=== PATIENT | female | born 1950 | race Caucasian/White ===

== ENCOUNTER 2022-12-28 12:03 | Emergency (ER) | payer MEDICARE, SELFPAY ==
[2022-12-28] VITALS (7 sets, daily range): BP systolic 165–179; BP diastolic 71–105; PULSE 68–89; RESP 14–20; TEMP 35.9; O2SAT 92–100; BMI 38.2
--- NOTE | 2022-12-28 12:39 | ED.VIS.LOWEX ---
HPI History of Present Illness Chief Complaint: Lower Extremity Injury Narrative Narrative: 81-year-old female past medical history of hypertension presents with injury to her left ankle that she sustained within the last hour. She presents via EMS after she fell down a hill. She states that she was in her backyard putting up a [place] tree in the gaz[place]o, when she stepped down and twisted her left ankle. She felt a pop. She denies hitting her head or loss of consciousness. No other injury but she was unable to get up secondary to the pain in her left ankle. She presents with positive deformity of her left lower extremity. PFSH PFSH Home Medications losartan 100 mg tablet 100 mg PO DAILY 12/28/22 [History Last Taken Unknown] oxycodone 5 mg tablet 5 mg PO Q6H PRN pain 3 days #12 tabs 12/28/22 [Rx Last Taken Unknown] Allergy/AdvReac Type Severity Reaction Status Date / Time No Known Allergies Allergy Verified 12/28/22 12:04 Social History Smoking Status: Never smoker ROS ROS ED ROS Narrative Constitutional: No fever, no chills. HEENT: No sore throat. No neck pain. No loss of vision. No rhinorrhea. Cardiovascular: No chest pain. No palpitations. No pedal edema. Respiratory: No cough, no shortness of breath. Abdominal: No abdominal pain. No nausea. No vomiting. Genitourinary: No dysuria. No hematuria. Musculoskeletal: No myalgias. Left ankle pain and deformity. Neurologic: No headaches. No dizziness. No lightheadedness. Skin: No rash. No change in color. Psychiatric: No depression. No anxiety. EXAM Physical Exam Narrative Exam Narrative: Afebrile. Vital signs noted. HEENT: Normocephalic. Atraumatic. PERRL, EOMI. Neck soft and supple. No point tenderness or step off. Cardiovascular: Regular rate and rhythm. No murmurs, rubs, or gallops appreciated. Respiratory: No tachypnea. Lungs clear to auscultation bilaterally. Gastrointestinal: Abdomen soft, nontender, with normoactive bowel sounds. No rebound or guarding. Neurological: Awake. Alert. Nonfocal, nonlateralizing. Skin: No rash. Normal color. No pallor. Musculoskeletal: No pedal edema. Deformity of left ankle with tibial shortening deformity noted with mild tenting of the skin, palpable dorsalis pedis pulse. Good color.. Const Vital Signs: 12/28/22 12:04 12/28/22 12:51 12/28/22 13:56 Temperature 96.7 F L 96.7 F L Temperature Source Temporal Pulse Rate 76 71 Pulse Rate [1 (Initial Baseline)] 89 Pulse Rate [4] 69 Pulse Rate [6] 69 Pulse Rate [7] 71 Respiratory Rate 14 14 Respiratory Rate [1 (Initial Baseline)] 16 Respiratory Rate [4] 16 Respiratory Rate [6] 16 Respiratory Rate [7] 20 H Blood Pressure 176/94 H 177/80 H Blood Pressure [1 (Initial Baseline)] 173/105 H Blood Pressure [4] 165/71 H Blood Pressure [6] 170/77 H Blood Pressure [7] 174/85 H Blood Pressure Mean 121 Pulse Ox 99 99 Oxygen Delivery Method Room Air Room Air Oxygen Delivery Method [1 (Initial Baseline)] Nasal Cannula Oxygen Delivery Method [4] Nasal Cannula Oxygen Delivery Method [6] Nasal Cannula Oxygen Delivery Method [7] Nasal Cannula Oxygen Flow Rate (L/min) [1 (Initial Baseline)] 4 Oxygen Flow Rate (L/min) [4] 4 Oxygen Flow Rate (L/min) [6] 4 Oxygen Flow Rate (L/min) [7] 4 12/28/22 13:55 12/28/22 14:00 12/28/22 14:05 Temperature Temperature Source Pulse Rate Pulse Rate [1 (Initial Baseline)] Pulse Rate [4] Pulse Rate [6] Pulse Rate [7] Respiratory Rate Respiratory Rate [1 (Initial Baseline)] Respiratory Rate [4] Respiratory Rate [6] Respiratory Rate [7] Blood Pressure Blood Pressure [1 (Initial Baseline)] Blood Pressure [4] Blood Pressure [6] Blood Pressure [7] Blood Pressure Mean Pulse Ox Oxygen Delivery Method Room Air Room Air Room Air Oxygen Delivery Method [1 (Initial Baseline)] Oxygen Delivery Method [4] Oxygen Delivery Method [6] Oxygen Delivery Method [7] Oxygen Flow Rate (L/min) [1 (Initial Baseline)] Oxygen Flow Rate (L/min) [4] Oxygen Flow Rate (L/min) [6] Oxygen Flow Rate (L/min) [7] MDM MDM MDM Narrative Medical decision making narrative: Concern is for fracture dislocation of left ankle. Given the obvious deformity, she was administered Dilaudid 1 mg intravenously and consented for procedural sedation for closed reduction. X-rays were obtained of the left ankle in 3 views which shows a posterior fracture dislocation of the left ankle. There is an oblique fracture of the distal fibula and medial malleolus fracture as well. This is on my independent interpretation of her initial x-rays. I reviewed the radiology report which confirms my independent rotation. Patient was administered an additional 50 mcg of fentanyl for analgesia prior to propofol sedation and closed reduction. A total of 100 mg of propofol was used for adequate sedation. Earle Lee splint was applied. Patient tolerated procedure well. She prefers to follow-up with the [facility]. They were contacted and made an appointment for her to follow-up tomorrow. She was given a walker and told to be nonweightbearing on her left ankle. Postreduction films obtained of the left ankle in 3 views and interpreted by myself independently which show adequate reduction of the fracture dislocation. She was given a prescription for 3 days worth of oxycodone. I reviewed the radiology report which confirms my postreduction interpretation. At this point in time, I feel she can be discharged to follow-up with orthopedics tomorrow. Return instructions to the emergency department were reviewed. Disposition is discharged home in stable condition. Radiography Diagnostic Testing: Clinical Impression(s) from Imaging Studies Ankle X-Ray 12/28/22 13:15 IMPRESSION: Posterior dislocation of the ankle joint with a displaced oblique fracture of the distal fibula and medial malleolar fracture of the distal tibia. Electronically Signed: Washington Leal MD at 13:39 EST , Ankle X-Ray 12/28/22 14:00 IMPRESSION: Satisfactory reduction. Persistent asymmetry of the ankle mortise. Electronically Signed: Washington Leal MD at 15:00 EST , Procedures Lower Extremity Splints Lower Extremity Splint: Orthoglass and Earle Lee Splint Fabrication: Fabricated Location: Left Discharge Plan Triage Chief Complaint: Lower Extremity Injury ED Provider: Brian Galeas Dx/Rx/DC Orders Clinical Impression: Closed fracture dislocation of left ankle, Fall Instructions: ED Ankle Fracture, ED Mechanical Fall Prescriptions: New oxycodone 5 mg tablet 5 mg PO Q6H PRN (Reason: pain) 3 Days Qty: 12 0RF No Action losartan 100 mg tablet 100 mg PO DAILY Patient Comments: take 1 tablet by mouth once daily Primary Care Provider: GOLD FU Referrals: GOLD FU CRNP [Primary Care Provider] - Activity Restrictions/Additional Instructions: Follow-up with the orthopedic surgeon tomorrow as scheduled at the [facility], Dr. Salas. Continue ice and elevation of your left ankle. You are not to bear weight on her your left ankle at all. Use your walker. Disposition Disposition: Home, Self Care
[2022-12-28] MEDS: HYDROmorphone 1 MG/ML Syringe IV (12:49)
--- NOTE | 2022-12-28 13:15 | RAD_ITS ---
STUDY: X-RAY - LEFT ANKLE REASON FOR EXAM: Female, 72 years old. Trauma TECHNIQUE: 2 view(s) of the ankle. COMPARISON: None. FINDINGS: Posterior dislocation of the tibial talar joint with the oblique displaced fracture of the distal fibula. There is also evidence of a fracture through the medial malleolus. Normal visualized talus and calcaneus. The visualized subtalar, talonavicular, calcaneocuboid and tarsal articulations are normal. Soft tissue swelling. RAD/Ankle 2 Views IMPRESSION: Posterior dislocation of the ankle joint with a displaced oblique fracture of the distal fibula and medial malleolar fracture of the distal tibia. Electronically Signed: Washington Leal MD at 13:39 EST ,
[2022-12-28] MEDS: fentaNYL 100 MCG/2 ML Ampul 50 MCG IV (13:35)
[2022-12-28] MEDS: Propofol 200 MG/20 ML Vial 20 MG IV BOLUS (13:38)
--- NOTE | 2022-12-28 14:00 | RAD_ITS ---
STUDY: X-RAY - LEFT ANKLE REASON FOR EXAM: Female, 72 years old. Post reduction -- portable TECHNIQUE: 3 view(s) of the ankle. COMPARISON: Comparison is made with prior study done earlier today. FINDINGS: Satisfactory reduction. Persistent asymmetry of the ankle mortise. RAD/Ankle min 3 Views IMPRESSION: Satisfactory reduction. Persistent asymmetry of the ankle mortise. Electronically Signed: Washington Leal MD at 15:00 EST ,
== END 2022-12-28 15:49 | disposition home or self-care (01) ==
PROVIDERS: Emergency Provider Emergency Medicine; PCP Nurse Practitioner Adult Health; Visit Provider Emergency Medicine
DX: S93.05XA Dislocation of left ankle joint, initial encounter (principal); I10 Essential (primary) hypertension; Z79.899 Other long term (current) drug therapy; S82.432A Displaced oblique fracture of shaft of left fibula, initial encounter for closed fracture; S82.52XA Displaced fracture of medial malleolus of left tibia, initial encounter for closed fracture
CPT/HCPCS: 27840; 29515; 73600; 73610; 96374; 96375; 99152; 99284; J7030; A4216

== ENCOUNTER → 2023-03-13 | Outpatient (CLI) | payer MEDICARE, SELFPAY ==
[2023-03-13 13:17] LABS: Absolute Lymphocyte Count 1.34 X10^3/uL (0.83-4.51); Basophil# 0.07 X10^3/uL; Basophil% 0.8 % (0-1); Eosinophil# 0.06 X10^3/uL; Eosinophils% 0.7 % (0-5); Hemoglobin 10.2 g/dL (12.0-15.0); Lymphocyte # 1.34 X10^3/ul (0.83-4.51); Lymphocyte % 14.9 % (19-41); Mean Corp Hgb Conc 30.9 g/dL (32-36); Mean Corpuscular Hgb 28.3 pg (27.0-32.0); Mean Corpuscular Volume 91.7 fL (81-99); Mean Platelet Vol. 10.1 fl (6.2-12.0); Monocyte# 0.46 X10^3/uL; Monocyte% 5.1 % (0-10); NRBC Flagged by Analyzer 0 % (0-5); Neutrophil # 7.01 X10^3/uL (2.7-7.7); Neutrophil % 78.2 % (47-70); Platelet Count 352 K/mm3 (150-450); RBC Distribution Width CV 13.3 % (11.6-14.6); RBC Distribution Width SD 45.3 fl (35.1-43.9)
[2023-03-13 13:35] LABS: Alanine Aminotransfer ALT/SGPT 17 U/L (13-56); EST Glomerular Filtration Rate 66 mL/min (>60); Est Glom Filt Rate - Afr Amer 80 mL/min (>60)
--- OUTSIDE RECORDS SUMMARY | 2023-03-13 13:47 | XMS RPT_ITS | CCD ---
Author Name Unknown Address [address] [place] [address] Organization [facility] Care Team Providers Care Planning Lead Name Role Phone PHYSICIAN, NONE Primary Care Physician Unavailab le MAST SENIOR IT ASSISTANT-ESOL TEACHER, GOLD Primary Care Physician ([phone]) MAST SENIOR IT ASSISTANT-ESOL TEACHER, GOLD Attending Unavailabl e MAST SENIOR IT ASSISTANT-ESOL TEACHER, GOLD Primary Care Unavailabl e MAST SENIOR IT ASSISTANT-ESOL TEACHER, GOLD Attending Unavailabl e PHYSICIAN, NONE Primary Care Unavailable ANNEMARIE THORPE MD Attending Unavailable PHYSICIAN, NONE Primary Care Unavailable MAST SENIOR IT ASSISTANT-ESOL TEACHER, GOLD Attending Unavailabl e PHYSICIAN, NONE Primary Care Unavailable GAGE OCAMPO, DR WETZEL Attending Unavailabl e MAST SENIOR IT ASSISTANT-ESOL TEACHER, GOLD Primary Care Unavailabl e Medications Current Medications Medication Drug Class(es) Dates Sig (Normalized) Sig (Original) dexamethasone 0.001 mg/mg / neomycin 0.0035 mg/mg / polymyxin b 10 unt/mg ophthalmic ointment (1 source) Aminoglycoside Antibacterial, Polymyxin-class Antibacterial, Corticosteroid Start: 09-06-2022 apply 1 dose into the eye(s) three times daily dexamethasone/justus mycin/polymyxin B 1 mg-3.5 mg-10,000 units/g ophthalmic ointment Dose = 1 ventura, Ophthalmic, TID, 0 Refill(s) Start Date: 09/06/22 Status: Ordered docusate sodium 100 mg oral capsule (4 sources) Start: 03-15-2022 End: 10-17-2022 Colace 100 mg oral capsule Dose : 100 mg = 1 cap(s), Oral, BID, PRN for constipation, # 60 cap(s), 6 Refill(s), Pharmacy: [facility] #[id number], Hypokalemia Constipation, 168, cm, 03/21/22 8:56:00 EST, Height, kg, 03/21/22 8:56:00 EST, Dosing Weight Start Date: 03/21/22 Stop Date: 10/17/22 Status: Ordered gabapentin 300 mg oral capsule (3 sources) Anti-epileptic Agent Start: 05-25-2022 End: 12-21-2022 gabapentin 300 mg oral capsule Dose : 300 mg = 1 cap(s), Oral, qDay, # 30 cap(s), 6 Refill(s), Spinal stenosis, 88.4 Start Date: 05/25/22 Stop Date: 12/21/22 Status: Ordered Problems Problem Classification Problem Date Documented Da te Episodic/Chronic Abdominal pain (2 sources) Abdominal pain 03-21-2022 Episodic Essential hypertension (5 sources) Essential hypertension; Translations: [Essential (primary) hypertension] Onset: 03-15-2022 Chronic Fluid and electrolyte disorders (1 source) Hypokalemia; Translations: [Hypokalemia] Onset: 03-15-2022 Episodic Malaise and fatigue (2 sources) Asthenia 05-09-2022 Episodic Other gastrointestinal disorders (1 source) Constipation, unspecified; Translations: [Constipation, unspecified] Onset: 03-15-2022 Episodic Other gastrointestinal disorders (3 sources) Abdominal bloating 05-09-2022 Episodic Other gastrointestinal disorders (3 sources) Constipation 03-21-2022 Episodic Other nervous system disorders (1 source) Paresthesia; Translations: [Paresthesia of skin] Onset: 03-15-2022 Episodic Other nervous system disorders (2 sources) Abnormal gait 05-09-2022 Episodic Other nervous system disorders (2 sources) Numbness of hand 03-21-2022 Episodic Other nervous system disorders (3 sources) Paresthesia of foot 03-21-2022 Episodic Other non-epithelial cancer of skin (1 source) Basal cell carcinoma of skin 08-12-2022 Episodic Spondylosis; intervertebral disc disorders; other back problems (4 sources) Spinal stenosis in cervical region; Translations: [Spinal stenosis of lumbar region] 05-25-2022 Episodic Unclassified (7 sources) Patient encounter status 03-21-2022 Urinary tract infections (1 source) Urinary tract infectious disease; Translations: [Urinary tract infection, site not specified] Onset: 03-15-2022 Episodic Results Test Name Value Interpretation Reference Range Facil ity Vital Signs Date Time Vital Sign Value Performing Clinician Faci lity 05-27-2022 11:10-0400 Diastolic Blood Pressure Non-Invasive [address] DAMARI ALMONTE MD [facility] 05-27-2022 11:10-0400 Heart rate 86 /min DR DAMARI ALMONTE MD [facility] 05-27-2022 11:10-0400 Respiratory rate 14 /min DR DAMARI ALMONTE MD [facility] 05-27-2022 11:10-0400 Systolic Blood Pressure Non-Invasive [address] DAMARI ALMONTE MD [facility] 05-27-2022 11:05-0400 Diastolic Blood Pressure Non-Invasive [address] DAMARI ALMONTE MD [facility] 05-27-2022 11:05-0400 Heart rate 83 /min DR DAMARI ALMONTE MD [facility] 05-27-2022 11:05-0400 Respiratory rate 24 /min DR DAMARI ALMONTE MD [facility] 05-27-2022 11:05-0400 Systolic Blood Pressure Non-Invasive [address] DAMARI ALMONTE MD [facility] 05-27-2022 11:00-0400 Diastolic Blood Pressure Non-Invasive [address] DAMARI ALMONTE MD [facility] 05-27-2022 11:00-0400 Heart rate 82 /min DR DAMARI ALMONTE MD [facility] 05-27-2022 11:00-0400 Respiratory rate 22 /min DR DAMARI ALMONTE MD [facility] 05-27-2022 10:50-0400 Respiratory Rate - Anes 18 br/min DR DAMARI ALMONTE MD [facility] 05-27-2022 10:45-0400 Respiratory Rate - Anes 22 br/min DR DAMARI ALMONTE MD [facility] 05-27-2022 10:40-0400 Respiratory Rate - Anes 0 br/min DR DAMARI ALMONTE MD [facility] 05-27-2022 10:05-[address] DAMARI ALMONTE MD [facility] 05-27-2022 10:05-[address] DAMARI ALMONTE MD [facility] 05-27-2022 10:05-0400 Body height [address] DAMARI ALMONTE MD [facility] 05-27-2022 10:05-0400 Body temperature 97.7 [degF] DR DAMARI ALMONTE MD [facility] 05-27-2022 10:05-0400 Body weight 90.[address] DAMARI ALMONTE MD [facility] 05-27-2022 10:05-0400 Body weight 32.21 kg/m2 DR DAMARI ALMONTE MD [facility] 05-27-2022 10:05-0400 Heart rate 101 /min DR DAMARI ALMONTE MD [facility] 03-15-2022 13:38-0500 Diastolic Blood Pressure Non-Invasive 81 1 ANNEMARIE THORPE MD [facility] 03-15-2022 13:38-0500 Heart rate 79 /min ANNEMARIE THORPE MD [facility] 03-15-2022 13:38-0500 Respiratory rate 16 /min ANNEMARIE THORPE MD [facility] 03-15-2022 13:38-0500 Systolic Blood Pressure Non-Invasive 187 1 ANNEMARIE THORPE MD [facility] 03-15-2022 13:08-0500 Diastolic Blood Pressure Non-Invasive 74 1 ANNEMARIE THORPE MD [facility] 03-15-2022 13:08-0500 Heart rate 84 /min ANNEMARIE THORPE MD [facility] 03-15-2022 13:08-0500 Respiratory rate 16 /min ANNEMARIE THORPE MD [facility] 03-15-2022 13:08-0500 Systolic Blood Pressure Non-Invasive 171 1 ANNEMARIE THORPE MD [facility] 03-15-2022 10:59-0500 Body temperature 97.7 [degF] ANNEMARIE THORPE MD [facility] 03-15-2022 10:59-0500 Diastolic Blood Pressure Non-Invasive 91 1 ANNEMARIE THORPE MD [facility] 03-15-2022 10:59-0500 Heart rate 93 /min ANNEMARIE THORPE MD [facility] 03-15-2022 10:59-0500 Respiratory rate 16 /min ANNEMARIE THORPE MD [facility] 03-15-2022 10:59-0500 Systolic Blood Pressure Non-Invasive 202 1 ANNEMARIE THORPE MD [facility] Encounters Encounter Date Encounter Type Care Provider Facility Start: 10-10-2022 End: 10-11-2022 ambulatory GOLD MAST SENIOR IT ASSISTANT-ESOL TEACHER Facility:B Start: 10-10-2022 End: 10-10-2022 Patient encounter procedure GOLD MAST SENIOR IT ASSISTANT-ESOL TEACHER [facility] Start: 05-27-2022 End: 05-27-[address] DAMARI ALMONTE MD Facility:[facility] Start: 05-27-2022 End: 05-27-[address] DAMARI ALMONTE MD [facility] Start: 05-23-2022 End: 05-24-2022 ambulatory GOLD MAST SENIOR IT ASSISTANT-ESOL TEACHER Facility:[facility] Start: 05-23-2022 End: 05-23-2022 Patient encounter procedure GOLD MAST SENIOR IT ASSISTANT-ESOL TEACHER [facility] Start: 03-24-2022 ambulatory GOLD MAST SENIOR IT ASSISTANT-ESOL TEACHER Fa cility:A Start: 03-15-2022 End: 03-15-2022 Emergency department patient visit ANNEMARIE THORPE MD Facility:[facility] Start: 03-15-2022 End: 03-15-2022 Emergency department patient visit ANNEMARIE THORPE MD [facility] Procedures Date Procedure Procedure Detail Performing Clinician Hysterectomy ANNEMARIE Santana Payers Date Payer Category Payer Unknown [id number] 1950 Unknown [id number] [id number] 1950 Unknown [id number] [id number] [id number] 1950 Unknown [id number] [id number] [id number] 1950 Unknown [id number] [id number] [id number] 1950 Unknown [id number] [id number] [id number] Social History Date Type Detail Facility Tobacco smoking status No Smokin g Status Entered [facility] Sex Assigned At Female [facility] Start: 03-21-2022 Tobacco smoking status Never s moked tobacco (finding) [facility] Functional Status Date Assessment Result Facility 05-27-2022 Functional Status Awake [facility] 05-27-2022 Functional Status Maintained [facility] 03-15-2022 Functional Status Independent [facility] 03-15-2022 Functional Status Standard Safety ID band on [facility] Mental Status Date Assessment Result Facility 05-27-2022 Mental Status Oriented x 4 [facility] 05-27-2022 Mental Status [facility] 03-15-2022 Mental Status Orientation Oriented x 4 [facility] 03-15-2022 Mental Status [facility] Clinical Notes 03-15-2022 to 05-27-2022 Note Date & Type Note Facility [place] ADMISSION HISTORY AN D PHYSICIAL CHIEF COMPLAINT: HISTORY OF PRESENT ILLNESS: REVIEW OF SYSTEMS: ACTIVE PROBLEMS: (12) Abdominal pain (39081920) Bloating (841460567) Constipation (75174521) Encounter for examination following treatment at hospital (431607213) HTN (hypertension) (4863478754) Numbness and tingling of both feet (575230501) Numbness in both hands (712930157) Screening for colon cancer (817983617) Spinal stenosis in cervical region (001948221) Spinal stenosis of lumbar region (28504240) Unsteady gait (00689319) Weakness (17544606) MEDICATIONS: Active Inpt Meds: None Active PRN Meds: None One Time Meds: None Active IV Meds: Lactated Ringers Infusion 1,000 mL (LR 1,000 mL) Start: 05/27/22 10:05:00 EDT, Rate: 50 mL/hr, 05/27/22 10:05:00 EDT ALLERGIES: (1) [facility] FAMILY HISTORY: SOCIAL HISTORY: PHYSICAL EXAM: VITALS: BefcjyNjvnPPRknijNXTuG9GDT0XlksFj(kg) 05/27 10:0536.5--[id number]/14 90.9 24 Hr Tmax: 36.5 at 05/27 10:05 36 Hr Tmax: 36.5 at 05/27 10:05 Vital Signs are the last 5 in the past 48 hours. Weights display the last 5 within 7 days. Initial Wt: 05/27 90.9 kg 200 lb Current Wt: 05/27 90.9 kg 200 lb GENERAL: HEENT: CARDIOVASCULAR: RESPIRATORY: ABDOMEN: EXREMETIES: NEUROLOGICAL: PSYCHIATRIC: LABS: No 36hr Lab Data DIAGNOSTICS: IMPRESSION: PLAN: History and Physical Update I have examined the patient; reviewed the H&P and there are no changes to the H&P unless noted below. Future Appointments Appointment Date:06/20/2022 09:00:00 AM Scheduled Provider:GOLD FU Location:[facility] Appointment Type:[facility] 04-14-2023 Hospital Discharge instructions Patient Education 05/27/2022 10:56:57 Nausea and Vomiting, Adult, Bcri-tv-Vfot Nausea and Vomiting, Adult Nausea is feeling sick to your stomach or feeling that you are about to throw up (vomit). Vomiting is when food in your stomach is thrown up and out of the mouth. Throwing up can make you feel weak. It can also make you lose too much water in your body (get dehydrated). If you lose too much water in your body, you may: Feel tired. Feel thirsty. Have a dry mouth. Have cracked lips. Go pee (urinate) less often. Older adults and people with other diseases or a weak body defense system (immune system) are at higher risk for losing too much water in the body. If you feel sick to your stomach and you throw up, it is important to follow instructions from your doctor about how to take care of yourself. Follow these instructions at home: Watch your symptoms for any changes. Tell your doctor about them. Follow these instructions to carefor yourself at home. Eating and drinking Take an ORS (oral rehydration solution). This is a drink that is sold at pharmacies and stores. Drink clear fluids in small amounts as you are able, such as: ?Water. ?Ice chips. ?Fruit juice that has water added (diluted fruit juice). ?Low-calorie sports drinks. Eat bland, ryle-xb-xiobje foods in small amounts as you are able, such as: ?Bananas. ?Applesauce. ?Rice. ?Low-fat (lean) meats. ?Tower. ?Crackers. Avoid drinking fluids that have a lot of sugar or caffeine in them. This includes energy drinks, sports drinks, and soda. Avoid alcohol. Avoid spicy or fatty foods. General instructions Take rpzm-pmz-lzalile and prescription medicines only as told by your doctor. Drink enough fluid to keep your pee (urine) pale yellow. Wash your hands often with soap and water. If you cannot use soap and water, use hand store grocery merchandiser. Make sure that all people in your home wash their hands well and often. Rest at home while you get better. Watch your condition for any changes. Take slow and deep breaths when you feel sick to your stomach. Keep all follow-up visits as told by your doctor. This is important. Contact a doctor if: Your symptoms get worse. You have new symptoms. You have a fever. You cannot drink fluids without throwing up. You feel sick to your stomach for more than 2 days. You feel light-headed or dizzy. You have a headache. You have muscle cramps. You have a rash. You have pain while peeing. Get help right away if: You have pain in your chest, neck, arm, or jaw. You feel very weak or you pass out (faint). You throw up again and again. You have throw up that is bright red or looks like black coffee grounds. You have bloody or black poop (stools) or poop that looks like tar. You have a very bad headache, a stiff neck, or both. You have very bad pain, cramping, or bloating in your belly (abdomen). You have trouble breathing. You are breathing very quickly. Your heart is beating very quickly. Your skin feels cold and clammy. You feel confused. You have signs of losing too much water in your body, such as: ?Dark pee, very little pee, or no pee. ?Cracked lips. ?Dry mouth. ?Sunken eyes. ?Sleepiness. ?Weakness. These symptoms may be an emergency. Do not wait to see if the symptoms will go away. Get medical help right away. Call your local emergency services (911 in the [place] Do not drive yourself to the hospital. Summary Nausea is feeling sick to your stomach or feeling that you are about to throw up (vomit). Vomiting is when food in your stomach is thrown up and out of the mouth. Follow instructions from your doctor about eating and drinking to keep from losing too much water in your body. Take chsz-agl-cvoztyn and prescription medicines only as told by your doctor. Contact your doctor if your symptoms get worse or you have new symptoms. Keep all follow-up visits as told by your doctor. This is important. This information is not intended to replace advice given to you by your health care provider. Make sure you discuss any questions you have with your health care provider. Document Released: 07/18/2008 Document Revised: 05/24/2019 Document Reviewed: 07/10/2018 [employer] Patient Education 2020 [employer]. 05/27/2022 10:56:56 Monitored Anesthesia Care, Care After Monitored Anesthesia Care, Care After These instructions provide you with information about caring for yourself after your procedure. Your health care provider may also give you more specific instructions. Your treatment has been plannedaccording to current medical practices, but problems sometimes occur. Call your health care provider if you have any problems or questions after your procedure. What can I expect after the procedure? After your procedure, you may: Feel sleepy for several hours. Feel clumsy and have poor balance for several hours. Feel forgetful about what happened after the procedure. Have poor judgment for several hours. Feel nauseous or vomit. Have a sore throat if you had a breathing tube during the procedure. Follow these instructions at home: For at least 24 hours after the procedure: Have a responsible adult stay with you. It is important to have someone help care for you until youare awake and alert. Rest as needed. Do not: ?Participate in activities in which you could fall or become injured. ?Drive. ?Use heavy machinery. ?Drink alcohol. ?Take sleeping pills or medicines that cause drowsiness. ?Make important decisions or sign legal documents. ?Take care of children on your own. Eating and drinking Follow the diet that is recommended by your health care provider. If you vomit, drink water, juice, or soup when you can drink without vomiting. Make sure you have little or no nausea before eating solid foods. General instructions Take huxz-nvj-uigmcat and prescription medicines only as told by your health care provider. If you have sleep apnea, surgery and certain medicines can increase your risk for breathing problems. Follow instructions from your health care provider about wearing your sleep device: ?Anytime you are sleeping, including during daytime naps. ?While taking prescription pain medicines, sleeping medicines, or medicines that make you drowsy. If you smoke, do not smoke without supervision. Keep all follow-up visits as told by your health care provider. This is important. Contact a health care provider if: You keep feeling nauseous or you keep vomiting. You feel light-headed. You develop a rash. You have a fever. Get help right away if: You have trouble breathing. Summary For several hours after your procedure, you may feel sleepy and have poor judgment. Have a responsible adult stay with you for at least 24 hours or until you are awake and alert. This information is not intended to replace advice given to you by your health care provider. Make sure you discuss any questions you have with your health care provider. Document Released: 05/22/2016 Document Revised: 04/30/2018 Document Reviewed: 05/22/2016 [employer] Patient Education 2020 [employer]. 05/27/2022 10:56:53 Colon Polyps Colon Polyps Polyps are tissue growths inside the body. Polyps can grow in many places, including the large intestine (colon). A polyp may be a round bump or a mushroom-shaped growth. You could have one polyp or several. Most colon polyps are noncancerous (benign). However, some colon polyps can become cancerous over time. Finding and removing the polyps early can help prevent this. What are the causes? The exact cause of colon polyps is not known. What increases the risk? You are more likely to develop this condition if you: Have a family history of colon cancer or colon polyps. Are older than 50 or older than 45 if you are . Have inflammatory bowel disease, such as ulcerative colitis or Crohn's disease. Have certain hereditary conditions, such as: ?Familial adenomatous polyposis. ?Hernandez syndrome. ?Turcot syndrome. ?Peutz Jeghers syndrome. Are overweight. Smoke cigarettes. Do not get enough exercise. Drink too much alcohol. Eat a diet that is high in fat and red meat and low in fiber. Had childhood cancer that was treated with abdominal radiation. What are the signs or symptoms? Most polyps do not cause symptoms. If you have symptoms, they may include: Blood coming from your rectum when having a bowel movement. Blood in your stool. The stool may look dark red or black. Abdominal pain. A change in bowel habits, such as constipation or diarrhea. How is this diagnosed? This condition is diagnosed with a colonoscopy. This is a procedure in which a lighted, flexible scope is inserted into the anus and then passed into the colon to examine the area. Polyps are sometimes found when a colonoscopy is done as part of routine cancer screening tests. How is this treated? Treatment for this condition involves removing any polyps that are found. Most polyps can be removed during a colonoscopy. Those polyps will then be tested for cancer. Additional treatment may be needed depending on the results of testing. Follow these instructions at home: Lifestyle Maintain a healthy weight, or lose weight if recommended by your health care provider. Exercise every day or as told by your health care provider. Do not use any products that contain nicotine or tobacco, such as cigarettes and e-cigarettes. If you need help quitting, ask your health care provider. If you drink alcohol, limit how much you have: ?0 1 drink a day for women. ? 0 2 drinks a day for men. Be aware of how much alcohol is in your drink. In the [place] one drink equals one 12 oz bottle of beer (355 mL), one 5 oz glass of wine (148 mL), or one 1 oz shot of hard liquor (44 mL). Eating and drinking Eat foods that are high in fiber, such as fruits, vegetables, and whole grains. Eat foods that are high in calcium and vitamin D, such as milk, cheese, yogurt, eggs, liver, fish, and broccoli. Limit foods that are high in fat, such as fried foods and desserts. Limit the amount of red meat and processed meat you eat, such as hot dogs, sausage, perez, and lunch meats. General instructions Keep all follow-up visits as told by your health care provider. This is important. ?This includes having regularly scheduled colonoscopies. ?Talk to your health care provider about when you need a colonoscopy. Contact a health care provider if: You have new or worsening bleeding during a bowel movement. You have new or increased blood in your stool. You have a change in bowel habits. You lose weight for no known reason. Summary Polyps are tissue growths inside the body. Polyps can grow in many places, including the colon. Most colon polyps are noncancerous (benign), but some can become cancerous over time. This condition is diagnosed with a colonoscopy. Treatment for this condition involves removing any polyps that are found. Most polyps can be removed during a colonoscopy. This information is not intended to replace advice given to you by your health care provider. Make sure you discuss any questions you have with your health care provider. Document Released: 10/26/2004 Document Revised: 05/17/2018 Document Reviewed: 05/17/2018 [employer] Patient Education [employer] Follow Up Care 05/16/2022 14:38:04 With:DAMARI ALMONTE Address: [address] [facility] [facility] [address] [place] [phone] Business (1) When: Unknown [facility] 04-14-2023 Note Discharge Instructions Thank you for allowing [facility] to assist you with your healthcare needs. The following is importantdischarge information regarding your hospital visit. Your Care Team GOLD FU DR Your Diagnosis COLON POLYPS What to do next Instructions From Your Doctor NO DRIVING FOR 24 HOURS Scheduled Follow-Up Appointments Appointment Type When With Where Contact Abdoul BEAR 06/20/2022 09:00 AM EDT GOLD FU [facility] [address] [place] [address] Follow Up Appointments Follow Up with DAMARI ALMONTE When Where: [address] [facility] [address] [place] [address] [phone] Business (1) Allergies NKA Medications Please ask your primary doctor or pharmacist before taking any other medication not listed, including over the counter drugs, herbal medications, vitamins and or supplements as they may interact withyour home medications. What How Much When Why Instructions Last Dose Unchanged docusate (Colace 100 mg oral capsule) 1 cap by mouth Two (2) times a day as needed for for constipation Hypokalemia Constipation Duration: 30 Days Unchanged gabapentin (gabapentin 300 mg oral capsule) 1 cap by mouth Three (3) times a day Spinal stenosis Duration: 30 Days Unchanged lisinopril 100 Milligram by mouth Once a day Please take this list to your next doctor s visit. Bring all medications you take, including over the counter medications, herbals and other supplements with you to your doctor s visit. Patients and families are reminded to discard old lists and to update any records with all medication providers or retail pharmacies. Education Materials Nausea and Vomiting, Adult Nausea is feeling sick to your stomach or feeling that you are about to throw up (vomit). Vomiting is when food in your stomach is thrown up and out of the mouth. Throwing up can make you feel weak. It can also make you lose too much water in your body (get dehydrated). If you lose too much water in your body, you may: Feel tired. Feel thirsty. Have a dry mouth. Have cracked lips. Go pee (urinate) less often. Older adults and people with other diseases or a weak body defense system (immune system) are at higher risk for losing too much water in the body. If you feel sick to your stomach and you throw up, it is important to follow instructions from your doctor about how to take care of yourself. Follow these instructions at home: Watch your symptoms for any changes. Tell your doctor about them. Follow these instructions to carefor yourself at home. Eating and drinking Take an ORS (oral rehydration solution). This is a drink that is sold at pharmacies and stores. Drink clear fluids in small amounts as you are able, such as: ? Water. ? Ice chips. ? Fruit juice that has water added (diluted fruit juice). ? Low-calorie sports drinks. Eat bland, zxnw-kr-zcffvs foods in small amounts as you are able, such as: ? Bananas. ? Applesauce. ? Rice. ? Low-fat (lean) meats. ? Tower. ? Crackers. Avoid drinking fluids that have a lot of sugar or caffeine in them. This includes energy drinks, sports drinks, and soda. Avoid alcohol. Avoid spicy or fatty foods. General instructions Take rhrg-nyp-ykzyprw and prescription medicines only as told by your doctor. Drink enough fluid to keep your pee (urine) pale yellow. Wash your hands often with soap and water. If you cannot use soap and water, use hand store grocery merchandiser. Make sure that all people in your home wash their hands well and often. Rest at home while you get better. Watch your condition for any changes. Take slow and deep breaths when you feel sick to your stomach. Keep all follow-up visits as told by your doctor. This is important. Contact a doctor if: Your symptoms get worse. You have new symptoms. You have a fever. You cannot drink fluids without throwing up. You feel sick to your stomach for more than 2 days. You feel light-headed or dizzy. You have a headache. You have muscle cramps. You have a rash. You have pain while peeing. Get help right away if: You have pain in your chest, neck, arm, or jaw. You feel very weak or you pass out (faint). You throw up again and again. You have throw up that is bright red or looks like black coffee grounds. You have bloody or black poop (stools) or poop that looks like tar. You have a very bad headache, a stiff neck, or both. You have very bad pain, cramping, or bloating in your belly (abdomen). You have trouble breathing. You are breathing very quickly. Your heart is beating very quickly. Your skin feels cold and clammy. You feel confused. You have signs of losing too much water in your body, such as: ? Dark pee, very little pee, or no pee. ? Cracked lips. ? Dry mouth. ? Sunken eyes. ? Sleepiness. ? Weakness. These symptoms may be an emergency. Do not wait to see if the symptoms will go away. Get medical help right away. Call your local emergency services (911 in the [place] Do not drive yourself to the hospital. Summary Nausea is feeling sick to your stomach or feeling that you are about to throw up (vomit). Vomiting is when food in your stomach is thrown up and out of the mouth. Follow instructions from your doctor about eating and drinking to keep from losing too much water in your body. Take ftub-qhe-viewhzi and prescription medicines only as told by your doctor. Contact your doctor if your symptoms get worse or you have new symptoms. Keep all follow-up visits as told by your doctor. This is important. This information is not intended to replace advice given to you by your health care provider. Make sure you discuss any questions you have with your health care provider. Document Released: 07/18/2008 Document Revised: 05/24/2019 Document Reviewed: 07/10/2018 [employer] Patient Education 2020 [employer]. Monitored Anesthesia Care, Care After These instructions provide you with information about caring for yourself after your procedure. Your health care provider may also give you more specific instructions. Your treatment has been plannedaccording to current medical practices, but problems sometimes occur. Call your health care provider if you have any problems or questions after your procedure. What can I expect after the procedure? After your procedure, you may: Feel sleepy for several hours. Feel clumsy and have poor balance for several hours. Feel forgetful about what happened after the procedure. Have poor judgment for several hours. Feel nauseous or vomit. Have a sore throat if you had a breathing tube during the procedure. Follow these instructions at home: For at least 24 hours after the procedure: Have a responsible adult stay with you. It is important to have someone help care for you until youare awake and alert. Rest as needed. Do not: ? Participate in activities in which you could fall or become injured. ? Drive. ? Use heavy machinery. ? Drink alcohol. ? Take sleeping pills or medicines that cause drowsiness. ? Make important decisions or sign legal documents. ? Take care of children on your own. Eating and drinking Follow the diet that is recommended by your health care provider. If you vomit, drink water, juice, or soup when you can drink without vomiting. Make sure you have little or no nausea before eating solid foods. General instructions Take tkfl-unj-tyhshvv and prescription medicines only as told by your health care provider. If you have sleep apnea, surgery and certain medicines can increase your risk for breathing problems. Follow instructions from your health care provider about wearing your sleep device: ? Anytime you are sleeping, including during daytime naps. ? While taking prescription pain medicines, sleeping medicines, or medicines that make you drowsy. If you smoke, do not smoke without supervision. Keep all follow-up visits as told by your health care provider. This is important. Contact a health care provider if: You keep feeling nauseous or you keep vomiting. You feel light-headed. You develop a rash. You have a fever. Get help right away if: You have trouble breathing. Summary For several hours after your procedure, you may feel sleepy and have poor judgment. Have a responsible adult stay with you for at least 24 hours or until you are awake and alert. This information is not intended to replace advice given to you by your health care provider. Make sure you discuss any questions you have with your health care provider. Document Released: 05/22/2016 Document Revised: 04/30/2018 Document Reviewed: 05/22/2016 [employer] Patient Education 2020 [employer]. Colon Polyps Polyps are tissue growths inside the body. Polyps can grow in many places, including the large intestine (colon). A polyp may be a round bump or a mushroom-shaped growth. You could have one polyp or several. Most colon polyps are noncancerous (benign). However, some colon polyps can become cancerous over time. Finding and removing the polyps early can help prevent this. What are the causes? The exact cause of colon polyps is not known. What increases the risk? You are more likely to develop this condition if you: Have a family history of colon cancer or colon polyps. Are older than 50 or older than 45 if you are . Have inflammatory bowel disease, such as ulcerative colitis or Crohn's disease. Have certain hereditary conditions, such as: ? Familial adenomatous polyposis. ? Hernandez syndrome. ? Turcot syndrome. ? Peutz Jeghers syndrome. Are overweight. Smoke cigarettes. Do not get enough exercise. Drink too much alcohol. Eat a diet that is high in fat and red meat and low in fiber. Had childhood cancer that was treated with abdominal radiation. What are the signs or symptoms? Most polyps do not cause symptoms. If you have symptoms, they may include: Blood coming from your rectum when having a bowel movement. Blood in your stool. The stool may look dark red or black. Abdominal pain. A change in bowel habits, such as constipation or diarrhea. How is this diagnosed? This condition is diagnosed with a colonoscopy. This is a procedure in which a lighted, flexible scope is inserted into the anus and then passed into the colon to examine the area. Polyps are sometimes found when a colonoscopy is done as part of routine cancer screening tests. How is this treated? Treatment for this condition involves removing any polyps that are found. Most polyps can be removed during a colonoscopy. Those polyps will then be tested for cancer. Additional treatment may be needed depending on the results of testing. Follow these instructions at home: Lifestyle Maintain a healthy weight, or lose weight if recommended by your health care provider. Exercise every day or as told by your health care provider. Do not use any products that contain nicotine or tobacco, such as cigarettes and e-cigarettes. If you need help quitting, ask your health care provider. If you drink alcohol, limit how much you have: ? 0 1 drink a day for women. ? 0 2 drinks a day for men. Be aware of how much alcohol is in your drink. In the [place] one drink equals one 12 oz bottle of beer (355 mL), one 5 oz glass of wine (148 mL), or one 1 oz shot of hard liquor (44 mL). Eating and drinking Eat foods that are high in fiber, such as fruits, vegetables, and whole grains. Eat foods that are high in calcium and vitamin D, such as milk, cheese, yogurt, eggs, liver, fish, and broccoli. Limit foods that are high in fat, such as fried foods and desserts. Limit the amount of red meat and processed meat you eat, such as hot dogs, sausage, perez, and lunch meats. General instructions Keep all follow-up visits as told by your health care provider. This is important. ? This includes having regularly scheduled colonoscopies. ? Talk to your health care provider about when you need a colonoscopy. Contact a health care provider if: You have new or worsening bleeding during a bowel movement. You have new or increased blood in your stool. You have a change in bowel habits. You lose weight for no known reason. Summary Polyps are tissue growths inside the body. Polyps can grow in many places, including the colon. Most colon polyps are noncancerous (benign), but some can become cancerous over time. This condition is diagnosed with a colonoscopy. Treatment for this condition involves removing any polyps that are found. Most polyps can be removed during a colonoscopy. This information is not intended to replace advice given to you by your health care provider. Make sure you discuss any questions you have with your health care provider. Document Released: 10/26/2004 Document Revised: 05/17/2018 Document Reviewed: 05/17/2018 Elsevier Patient Education 2020 [employer]. Additional Information VACCINATE! IT SAVES LIVES! Members of the community who have not yet received the COVID-19 vaccine and would like to receive it can visit one of [facility] vaccine clinics. There are many vaccine clinic locations within the [facility]. For locations and available times, please visit https://gettheshot.coronavirus.[place].gov/. It is important to note that some COVID mobile vaccine clinics are held outdoors and may be canceled in rainy or stormy conditions. To learn more about pediatric vaccinations (ages 5-11), we invite you to visit the [employer] webpage. https://www.[employer].org/pages/[email or web address]-Zcpbl-Dvlrmbjptkb-Mjrgmiyact-Vfsjw-[email or web address] stions.htmlTo learn more about the COVID-19 vaccine, we invite you to visit the CDC website for a list of frequently asked questions. https://www.cdc.gov/coronavirus/2019-ncov/vaccines/faq.html [facility] Patient Portal Access Instructions: Stay connected with your healthcare team and access your personal medical information anytime with the [facility] Patient Portal.If you would like a full copy of your medical records, please contact the [facility] Medical Records Department, Monday through Monday between 8a.m. and 4:30p.m. Please follow the directions below to access the portal: 1.Access the email account you provided upon registration to the [facility].2.Look for an invitation email from [facility].3.Open the email and access the invitation link: Accept Invitation to [facility]4.Fill in the required cifuentes to create your account. Sign into [email or web address] with your username and password that you created in the above steps to stay up to date. You can then view a summary of results, a summary of your visits, and the ability to download your summaries to your computer or send the information securely to a physician. Remember that your healthcare information is confidential, so carefully consider who you will allow to register on the [facility] Patient Portal for access to your information. You can also access the [facility] Patient Portal on the [facility]. Simply click on Health Records under [employer] and then click on the [employer] logo. HOW TO SAFELY DISPOSE OF PRESCRIPTION MEDICATIONS Please use one of the following methods to safely dispose of your unused medications. 1.Use a drug disposal kit: the drug disposal pouch allows you to safely discard your old and unuseddrugs. Ask your nurse to give you one when you are discharged.2.Visit a local take-back location: Many local pharmacies and police departments have programs that collect old and unwanted prescriptiondrugs. Call your local pharmacy or go to http://[employer]3I9Yj4c to find one close to you.3.Make use of household items: Use cat litter or old coffee grounds to dispose medications if other options arenot available. Mix your drugs with these household products, seal them in an airtight container andthrow it into the garbage. Call [facility]: [phone] to be sure your drugs can be disposed of in this way. Some medicines may require a different approach.4.Never flush your medications down the toilet. IF YOU HAVE BEEN PRESCRIBED AN OPIOID FOR PAIN If you have been prescribed an opioid (such as hydrocodone, oxycodone or morphine), it is critical to understand the possible side effects and risks of opioid pain medications. Even when taken as directed, opioids can have several side effects including: Tolerance, meaning you might need to take more of a medication for the same pain relief. Nausea, vomiting and/or constipation. Sleepiness, dizziness, dry mouth, confusion, depression or itching. Physical dependence, meaning you have withdrawal symptoms when a medication is stopped, can develop within a few days. KNOW YOUR RESPONSIBILITIES It is important to know exactly how much and how often to take the opioid pain medications you are prescribed. Never take opioids in higher amounts or more often than prescribed. Do not combine opioids with alcohol or other drugs that cause drowsiness, such as benzodiazepines, also known as benzos, including diazepam and alprazolam, muscle relaxants or sleep aids. Never sell or share prescription opioids. This is illegal. Store opioids in a secure place and out of reach of others (including children, family, friends and visitors). The last page of this document has been signed and retained as a CHART COPY. Signatures Patient Education Materials Nausea and Vomiting, Adult, Gxsd-pc-Zepy Monitored Anesthesia Care, Care After Colon Polyps Medication Leaflets My discharge plan and instructions have been reviewed and explained to me and I,BIBIANA STRICKLAND understand my current condition and have read and understand these discharge instructions. I have received a written copy of the plan/instructions. If I have questions, I am aware that I should contact my doctor. Patient/Client Engagement Specialist Signature: Date/Time: Relationship to Patient: Witness Name/Signature: Date/Time: [facility]04-14-2023 Anesthesiology Consult note Patient: BIBIANA STRICKLAND Age: 71 years Sex: Female : 1950 Associated Diagnoses: None Author: WALTER LOPES Preoperative Information Time of last food or liquid consumption: 05/27/2022 00:00:00 Anesthesia history Patient's history: negative. Family's history: negative. Review of Systems Ear/Nose/Mouth/Throat: Negative. Respiratory: Negative. Cardiovascular: htn. Gastrointestinal: obese. Genitourinary: Negative. Endocrine: Negative. Musculoskeletal: Back pain. Integumentary: Negative. Neurologic: Negative. Health Status Allergies: Allergic Reactions (Selected) NKA, Allergies (1) ActiveReaction NKANone Documented Current medications: (Selected) Inpatient Medications Ordered LR 1,000 mL: 50 mL/hr, Intravenous Prescriptions Prescribed Colace 100 mg oral capsule: 100 mg, 1 cap(s), Oral, BID, for 30 day(s), PRN: for constipation, 60 cap(s), 6 Refill(s) gabapentin 300 mg oral capsule: 300 mg, 1 cap(s), Oral, TID, for 30 day(s), 90 cap(s), 6 Refill(s) Documented Medications Documented lisinopril: 100 mg, Oral, qDay, 0 Refill(s), Medications (1) Active Scheduled: (0) Continuous: (1) Lactated Ringers Infusion 1,000 mL 1,000 mL, Intravenous, 50 mL/hr PRN: (0) Problem list: Medical Bloating / SNOMED CT 488301079 / Confirmed Abdominal pain / SNOMED CT 46962464 / Confirmed Unsteady gait / SNOMED CT 01858467 / Confirmed Weakness / SNOMED CT 22685422 / Confirmed Constipation / SNOMED CT 28080065 / Confirmed HTN (hypertension) / SNOMED CT 4666815439 / Confirmed Numbness in both hands / SNOMED CT 222590750 / Confirmed Numbness and tingling of both feet / SNOMED CT 667256048 / Confirmed Encounter for examination following treatment at hospital / SNOMED CT 701487718 / Confirmed Screening for colon cancer / SNOMED CT 742983924 / Confirmed Spinal stenosis in cervical region / SNOMED CT 017795671 / Confirmed Spinal stenosis of lumbar region / SNOMED CT 68915212 / Confirmed, Active Problems (12) Abdominal pain Bloating Constipation Encounter for examination following treatment at hospital HTN (hypertension) Numbness and tingling of both feet Numbness in both hands Screening for colon cancer Spinal stenosis in cervical region Spinal stenosis of lumbar region Unsteady gait Weakness Histories Past Medical History: No active or resolved past medical history items have been selected or recorded. Family History: Rheumatic fever Father () Procedure history: Hysterectomy ([id number]). Social History Social & Psychosocial Habits Alcohol 03/21/2022 Use: Current Frequency: 1-2 times per year Substance Abuse 03/21/2022 Use: Current Tobacco 03/21/2022 Tobacco Use: Never (less than 100 in l Home/Environment 05/27/2022 Domestic Concerns None Living situation: Home/Independent Nutrition/Health 03/21/2022 Caffeine intake amount: tea 1 daily . Physical Examination Vital Signs 05/27/2022 10:24 EDT Systolic Blood Pressure Non-Invasive 186 mmHg HI Diastolic Blood Pressure Non-Invasive 87 mmHg 05/27/2022 10:05 EDT Temperature Oral 36.5 DegC Peripheral Pulse Rate 101 bpm HI Respiratory Rate 14 br/min Systolic Blood Pressure Non-Invasive 195 mmHg HI Diastolic Blood Pressure Non-Invasive 97 mmHg HI Blood Pressure Method Manual Blood Pressure Location Left arm Vital Signs(last 24 hrs) Last Charted Temp Oral36.5 DegC (MAY 27 10:05) Resp Rate 14 br/min (MAY 27 10:05) SBPH 186mmHg (MAY 27 10:24) DBP87 mmHg (MAY 27 10:24) BMI32.21 (MAY 27 10:05) Measurements from flowsheet : Measurements 05/27/2022 10:05 EDT Height 168 cm Height in inches 66.1 inch(es) Admission Weight 90.9 kg Weight Lbs 200 lb Weight Method Stated Mccormick Body Weight 59.63 kg BSA Admission 2 Body Mass Index 32.21 kg/m2 Admission Body Mass Index 32.21 m2 Pain assessment: Pain Assessment 05/27/2022 10:05 EDT Primary Pain Intensity 0 Pain Scale Type 0-10 Pain scale . General: Alert and oriented. Airway: Normal temporomandibular joint mobility. Mallampati classification: II (soft palate, fauces, uvula visible). Head: Normocephalic. Dentition Evaluation: Own teeth. Neck: Supple. Respiratory: Lungs are clear to auscultation. Cardiovascular: Normal rate. Heart Sounds: Normal. Gastrointestinal: Soft. Musculoskeletal Normal range of motion. Integumentary: Intact. Neurologic: Alert, Oriented. Review / Management Results review: No qualifying data available , Lab results 05/27/2022 10:33 EDT SN - Proc - Anesthesia Type MAC SN - Proc - EBL 0 mL SN - Proc - Actual Procedure COLONOSCOPY 05/27/2022 10:32 EDT SN - PP - Body Position Lateral Right Side-up Standard Intra-op 05/27/2022 10:32 EDT SN - GCD - Post-operative Diagnosis SCREENING SN - GCD - Case Level OPD Level 3 05/27/2022 10:30 EDT SN - CAt - Case Attendee SN - CAt - Case Attendee SN - CAt - Case Attendee SN - CAt - Case Attendee SN - CAt - Case Attendee SN - CAt - Case Attendee SN - CAt - Case Attendee SN - CAt - Case Attendee SN - CAt - Role Performed Primary Surgeon SN - CAt - Role Performed CORPORATE LIBRARIAN SN - CAt - Role Performed Customer Sales Specialist 1 SN - CAt - Role Performed Anesthesiologist Physician 05/27/2022 10:24 EDT Systolic Blood Pressure Non-Invasive 186 mmHg HI Diastolic Blood Pressure Non-Invasive 87 mmHg 05/27/2022 10:23 EDT Lactated Ringers Injection Begin Bag 1,000 mL mL 05/27/2022 10:05 EDT Designated Person #1 We May Share ARSENIO MEDRANO [phone] Designated Person #1 Relationship Spouse Height 168 cm Height in inches 66.1 inch(es) Admission Weight 90.9 kg Weight Lbs 200 lb Weight Method Stated Mccormick Body Weight 59.63 kg BSA Admission 2 Body Mass Index 32.21 kg/m2 Admission Body Mass Index 32.21 m2 Temperature Oral 36.5 DegC Peripheral Pulse Rate 101 bpm HI Respiratory Rate 14 br/min Systolic Blood Pressure Non-Invasive 195 mmHg HI Diastolic Blood Pressure Non-Invasive 97 mmHg HI Blood Pressure Method Manual Blood Pressure Location Left arm Primary Pain Intensity 0 Pain Scale Type 0-10 Pain scale Oxygen Therapy Room air Oxygen Saturation 99 % Abdomen Description Non-distended, Symmetric, Soft Abdomen Palpation Non-Tender, Soft Bowel Sounds All Quadrants Present Urinary Elimination Voiding, no difficulties Status Skin Temperature Warm Skin Description [place] Skin Integrity Intact Wrist Right 05/27/2022 22 gauge Peripheral IV Activity: Insert new site Peripheral IV Dressing Condition: Clean, Dry, Intact Peripheral IV Dressing Activity: Transparent dressing Peripheral IV Line Status/Patency: Flushes easily Peripheral IV Line Care: Secured with tape Peripheral IV Site Condition: No complications Peripheral IV Equipment: Extension set Peripheral IV Number of Attempts: 1 Characteristics of Speech Clear Level of Consciousness Alert YOLANDE Yes Strength All Extremities Strong Sensation All Extremities Numbness, Tingling Affect/Behavior Appropriate, Calm, Cooperative Orientation Oriented x 4 Sensory Deficits None Infectious Disease Symptoms Patient states no symptoms Infectious Disease Recent Exposure No Alcohol and Drug Use No Employee of Institutional Living No Health Care Employee No History of Exposure to TB No History of Positive Chest X-Ray for TB No History of Positive TB Skin Test No Homeless No Known Immunosuppression No Recent Immigrant No Resident of Institutional Living No Bloody Sputum No Fatigue No Fever No Loss of Appetite No Night Sweats No Persistent Cough > 3 Weeks No Weight Loss No Consent Form Signed Yes History & Physical Update On Chart Yes History & Physical On Chart Yes Bowel Prep Completed Yes Orientation Assessment Oriented x 4 Barriers to Learning None evident Teaching Method Explanation Preferred Written Language Cymraes Preferred Spoken Language Cymraes Information Given by Patient Patient's Current Physicians MAST Discharge To, Anticipated Home independently Activity Status ADL Awake Assistive Device None NPO Status Maintained Standard Safety ID band on, Allergy Band on, Call device within reach, Bed in low position, Wheels locked, Upper/Half-Length side-rails up, Safety level maintained Prev Test Positive/Diagnosis w/COVID-19 No Current Quarantine/Isolated any Illness No Any Contact with Sick Animals/Birds No Traveled Anywhere in Last 30 Days No Patient ID Band on and Verified Yes Implants Verified Yes Pacemaker/AICD Verified Yes Anesthesia Consent Signed Yes Blood Consent Signed Yes Last Fluid Intake 05/26/2022 5:00 Last Food Intake 05/26/2022 18:00 Last Void 05/27/2022 10:22 Yes Personal Devices, Patient Valuables None Admission Note-Nursing Procedure/Therapy Intake (Modified) 05/26/2022 6:33 EDT Mora LEYVA . Assessment and Plan [place] [employer] (ASA) physical status classification: Class II. Anesthetic Preoperative Plan Anesthetic technique: MAC. Postoperative pain management: Per surgeon. Informed consent: signed by patient. Digitally Signed by WALTER LOPES on 05/27/2022 10:35 AM [facility]04-14-2023 Note [place] ADMISSION HISTORY AND PHYSICIAL CHIEF COMPLAINT: HISTORY OF PRESENT ILLNESS: REVIEW OF SYSTEMS: ACTIVE PROBLEMS: (12) Abdominal pain (74087611) Bloating ([id number]) Constipation (35088378) Encounter for examination following treatment at hospital ([id number]) HTN (hypertension) ([id number]) Numbness and tingling of both feet (969625684) Numbness in both hands (780417370) Screening for colon cancer (746057144) Spinal stenosis in cervical region (690936081) Spinal stenosis of lumbar region (13968555) Unsteady gait (85784066) Weakness (32998753) MEDICATIONS: Active Inpt Meds: None Active PRN Meds: None One Time Meds: None Active IV Meds: Lactated Ringers Infusion 1,000 mL (LR 1,000 mL) Start: 05/27/22 10:05:00 EDT, Rate: 50 mL/hr, 05/27/22 10:05:00 EDT ALLERGIES: (1) NKA FAMILY HISTORY: SOCIAL HISTORY: PHYSICAL EXAM: VITALS: [id number](kg) 05/27 10:0536.5--[id number]/14 90.9 24 Hr Tmax: 36.5 at 05/27 10:05 36 Hr Tmax: 36.5 at 05/27 10:05 Vital Signs are the last 5 in the past 48 hours. Weights display the last 5 within 7 days. Initial Wt: 05/27 90.9 kg 200 lb Current Wt: 05/27 90.9 kg 200 lb GENERAL: HEENT: CARDIOVASCULAR: RESPIRATORY: ABDOMEN: EXREMETIES: NEUROLOGICAL: PSYCHIATRIC: LABS: No 36hr Lab Data DIAGNOSTICS: IMPRESSION: PLAN: History and Physical Update I have examined the patient; reviewed the H&P and there are no changes to the H&P unless noted below. Digitally Signed by DAMARI ALMONTE MD on 05/27/2022 10:34 AM [facility]02-02-2023 Note. MICRO - Microbiology PROCEDURE: Urine Culture [*1] SOURCE: Urine BODY SITE: COLLECTED DATE/TIME: 03/15/2022 13:10 EST RECEIVED DATE/TIME: 03/15/2022 21:16 EST START DATE/TIME: 03/15/2022 21:17 EST FREE TEXT SOURCE: FINAL REPORTS Final Report [] Verified Date/Time/Personnel: 03/17/2022 07:58 EST 10,000 - 50,000 cfu/ml Mixed growth consistent with normal urogenital jennifer. PRELIMINARY REPORTS Preliminary Report [] Verified Date/Time/Personnel: 03/16/2022 11:09 EST No growth to date Performing Locations *1: This test was performed at: [facility], [address] [place] [address], [id number] , Count includes the [facility] ([place])03-15-2022 Hospital Discharge instructions Patient Education 03/15/2022 12:59:20 Controlling High Blood Pressure Controlling High Blood Pressure High blood pressure (hypertension) is often called the silent killer. This is because many people who have it, don t know it. High blood pressure can raise your risk of heart attack, stroke, heart disease, and heart failure. Controlling your blood pressure can decrease your risk of these problems. Know your blood pressure and remember to check it regularly. Doing so can save your life. Blood pressure measurements are given as 2 numbers. Systolic blood pressure is the upper number. This is the pressure when the heart contracts. Diastolic blood pressure is the lower number. This is the pressure when the heart relaxes between beats. Blood pressure is categorized as normal, elevated, or stage 1 or stage 2 high blood pressure: Normal blood pressure is systolic of less than 120 and diastolic of less than 80 (120/80) Elevated blood pressure is systolic of 120 to 129 and diastolic less than 80 Stage 1 high blood pressure is systolic is 130 to 139 or diastolic between 80 to 89 Stage 2 high blood pressure is when systolic is 140 or higher or the diastolic is 90 or higher Here are some things you can do to help control your blood pressure. Choose heart-healthy foods Select low-salt, low-fat foods. Limit sodium intake to 2,400 mg per day or the amount suggested by your healthcare provider. Limit canned, dried, cured, packaged, and fast foods. These can contain a lot of salt. Eat 8 to 10 servings of fruits and vegetables every day. Choose lean meats, fish, or chicken. Eat whole-grain pasta, brown rice, and beans. Eat 2 to 3 servings of low-fat or fat-free dairy products. Ask your doctor about the DASH eating plan. This plan helps reduce blood pressure. When you go to a restaurant, ask that your meal be prepared with no added salt. Maintain a healthy weight Ask your healthcare provider how many calories to eat a day. Then stick to that number. Ask your healthcare provider what weight range is healthiest for you. If you are overweight, a weight loss of only 3% to 5% of your body weight can help lower blood pressure. Generally, a good weightloss goal is to lose 10% of your body weight in a year. Limit snacks and sweets. Get regular exercise. Get up and get active Choose activities you enjoy. Find ones you can do with friends or family. This includes bicycling, dancing, walking, and jogging. Park farther away from building entrances. Use stairs instead of the elevator. When you can, walk or bike instead of driving. [place] leaves, garden, or do household repairs. Be active at a moderate to vigorous level of physical activity for at least 40 minutes for a minimum of 3 to 4 days a week. Manage stress Make time to relax and enjoy life. Find time to laugh. Communicate your concerns with your loved ones and your healthcare provider. Visit with family and friends, and keep up with hobbies. Limit alcohol and quit smoking Men should have no more than 2 drinks per day. Women should have no more than 1 drink per day. Talk with your healthcare provider about quitting smoking. Smoking significantly increases your risk for heart disease and stroke. Ask your healthcare provider about community smoking cessation programs and other options. Medicines If lifestyle changes aren t enough, your healthcare provider may prescribe high blood pressure medicine. Take all medicines as prescribed. If you have any questions about your medicines, ask your healthcare provider before stopping or changing them. 3330-8901 The [employer]. [address] [place] [address]. All rights reserved. This information is not intended as a substitute for professional medical care. Always follow yourhealthcare professional's instructions. Follow Up Care 03/15/2022 10:58:20 With:DAMARI ALMONTE MD Address: [address] [address] [phone] When:5 to 7 days With:Follow up with primary care provider Address:Unknown When:2-4 days With:Call Physician Referral Address:Unknown When:2-4 days [facility] 01-31-2023 Note Discharge Instructions Thank you for allowing [facility] to assist you with your healthcare needs. The following is importantdischarge information regarding your hospital visit. Diagnosis from Today's Visit Hypokalemia Constipation Hypertension Paresthesia Numbness/tingling UTI (urinary tract infection) What to Do Next Instructions from Your Care Team We recommend that you establish with a primary care physician. If you do not have 1 we will provideyou with a phone number to call. Additionally we are starting you on a medication for your blood pressure given your reported history of high blood pressure as well as your elevated numbers here. Morning of MiraLAX Cleanout When you wake up: - Begin a liquid diet. (See list below for suggestions.) - Take 2 Dulcolax (bisacodyl) tablets. (DO NOT CHEW.) - Begin MiraLAX on a daily basis per instructions 1 hour after waking up: - Mix the entire 238-gram bottle of MiraLAX with 64 ounces of a sports drink. - Drink all of the mixture over the next few hours until gone. (Suggestion: An 8-ounce glass every 15-30 minutes equals 2-4 hours.) - It is very important to drink plenty of water and other liquids in order to avoid dehydration andto flush the bowel. (Although alcohol is a liquid, it can make you dehydrated. You should NOT drinkalcohol while doing the cleanout.) - NOTE: Please stay home once you have started your cleanout. Also, the use of moist towelettes or wipes may help to minimize discomfort during the cleanout. A nonprescription 1% hydrocortisone creammay also be soothing when applied to the rectal area after each bowel movement. - It is common during the cleanout to experience some nausea, bloating, and/or abdominal distention. If you chilled the mixture prior to drinking it, you could experience chills from consuming so much cold liquid in a short time period. If you develop nausea or vomiting, slow down the rate at whichyou drink the solution. Please attempt to drink all of the laxative solution even if it takes you longer. Once stooling slows down, you may resume eating solid food. Liquid Diet - Juices - Coffee and Tea - Powdered Drinks - Water/Vitamin Water - Diet/Regular Sodas - Sports Drinks - Popsicles - Jell-O - Broths or Bouillon - Ensure or Boost No qualifying data available. Post Acute Orders No qualifying data available. You Need to Schedule the Following Appointments Follow Up with DAMARI ALMONTE MD When Within 5 to 7 days Where: [address] [place] [address]- [phone] Follow Up with Follow up with primary care provider When Within 2-4 days Follow Up with Call Physician Referral When Within 2-4 days Allergies NKA Medications Please ask your primary doctor or pharmacist before taking any other medication not listed, including over the counter drugs, herbal medications, vitamins and or supplements as they may interact withyour home medications. What How Much When Why Instructions Last Dose New docusate (Colace 100 mg oral capsule) 1 cap by mouth Two (2) times a day as needed for for constipation Hypokalemia Constipation Duration: 30 Days Printed Prescription New lisinopril (lisinopril 20 mg oral tablet) 1 tab(s) by mouth Once a day Hypokalemia Constipation Printed Prescription Please take this list to your next doctor s visit. Bring all medications you take, including over the counter medications, herbals and other supplements with you to your doctor s visit. Patients and families are reminded to discard old lists and to update any records with all medication providers or retail pharmacies. Medication Leaflets lisinopril ([place] pril) Prinivil, Qbrelis, Zestril What is the most important information I should know about lisinopril? Do not use if you are , and tell your doctor right away if you become . If you have diabetes, do not use lisinopril together with any medication that contains aliskiren (ablood pressure medicine). Do not take lisinopril within 36 hours before or after taking medicine that contains sacubitril (such as Entresto). What is lisinopril? Lisinopril is an JOHN inhibitor that is used to treat high blood pressure (hypertension) in adults and children who are at least 6 years old. Lisinopril is also used to treat congestive heart failure in adults, or to improve survival after aheart attack. Lisinopril may also be used for purposes not listed in this medication guide. What should I discuss with my healthcare provider before taking lisinopril? You should not use lisinopril if you are allergic to it, or if you: have a history of angioedema; recently took a heart medicine called sacubitril; or are allergic to any other JOHN inhibitor, such as benazepril, captopril, enalapril, fosinopril, moexipril, perindopril, quinapril, ramipril, or trandolapril. Do not take lisinopril within 36 hours before or after taking medicine that contains sacubitril (such as Entresto). If you have diabetes, do not use lisinopril together with any medication that contains aliskiren (ablood pressure medicine). You may also need to avoid taking lisinopril with aliskiren if you have kidney disease. Tell your doctor if you have ever had: kidney disease (or if you are on dialysis); liver disease; or high levels of potassium in your blood. Do not use if you are , and tell your doctor right away if you become . Lisinopril can cause injury or to the unborn baby if you take the medicine during your second or third trimester. You should not breastfeed while using this medicine. How should I take lisinopril? Follow all directions on your prescription label and read all medication guides or instruction sheets. Your doctor may occasionally change your dose. Use the medicine exactly as directed. Drink plenty of water each day while you are taking this medicine. Lisinopril can be taken with or without food. Measure liquid medicine carefully. Use the dosing syringe provided, or use a medicine dose-measuring device (not a kitchen spoon). Your blood pressure will need to be checked often. Your kidney function and electrolytes may also need to be checked. Call your doctor if you are sick with vomiting or diarrhea, or if you are sweating more than usual.You can easily become dehydrated while taking lisinopril. This can lead to very low blood pressure,a serious electrolyte imbalance, or kidney failure. If you need surgery, tell the surgeon ahead of time that you are using lisinopril. If you have high blood pressure, keep using this medicine even if you feel well. High blood pressure often has no symptoms. You may need to use blood pressure medicine for the rest of your life. Store at room temperature away from moisture and heat. Do not freeze the oral liquid. What happens if I miss a dose? Take the medicine as soon as you can, but skip the missed dose if it is almost time for your next dose. Do not take two doses at one time. What happens if I overdose? Seek emergency medical attention or call the Poison Help line at . What should I avoid while taking lisinopril? Drinking alcohol can further lower your blood pressure and may increase certain side effects of lisinopril. Avoid becoming overheated or dehydrated during exercise, in hot weather, or by not drinking enough fluids. Lisinopril can decrease sweating and you may be more prone to heat stroke. Do not use potassium supplements or salt substitutes, unless your doctor has told you to. Avoid getting up too fast from a sitting or lying position, or you may feel dizzy. What are the possible side effects of lisinopril? Get emergency medical help if you have signs of an allergic reaction: hives; severe stomach pain; difficulty breathing; swelling of your face, lips, tongue, or throat. You may be more likely to have an allergic reaction if you are -[place]. Call your doctor at once if you have: a light-headed feeling, like you might pass out; fever, sore throat; high potassium--nausea, weakness, tingly feeling, chest pain, irregular heartbeats, loss of movement; kidney problems--little or no urination, swelling in your feet or ankles, feeling tired or short ofbreath; or liver problems--nausea, upper stomach pain, itching, tired feeling, loss of appetite, dark urine, velia-colored stools, jaundice (yellowing of the skin or eyes). Common side effects may include: headache, dizziness; cough; or chest pain. This is not a complete list of side effects and others may occur. Call your doctor for medical advice about side effects. You may report side effects to FDA at 3-443-YZF-2605. What other drugs will affect lisinopril? Tell your doctor about all your other medicines, especially: a diuretic or 'water pill'; lithium; gold injections to treat arthritis; insulin or oral diabetes medicine; a potassium supplement; medicine to prevent organ transplant rejection--everolimus, sirolimus, tacrolimus, temsirolimus; or NSAIDs (nonsteroidal anti-inflammatory drugs)--aspirin, ibuprofen (Advil, Motrin), naproxen (Aleve), celecoxib, diclofenac, indomethacin, meloxicam, and others. This list is not complete. Other drugs may affect lisinopril, including prescription and qise-rte-oyaywcu medicines, vitamins, and herbal products. Not all possible drug interactions are listed here. Where can I get more information? Your pharmacist can provide more information about lisinopril. Remember, keep this and all other medicines out of the reach of children, never share your medicines with others, and use this medication only for the indication prescribed. Every effort has been made to ensure that the information provided by [employer]. ('[employer]') is accurate, up-to-date, and complete, but no guarantee is made to that effect. Drug information contained herein may be time sensitive. [employer] information has been compiled for use by healthcare practitioners and consumers in the [place] and therefore [employer] does not warrant that uses outside of the [place] are appropriate, unless specifically indicated otherwise. [employer] drug information does not endorse drugs, diagnose patients or recommend therapy. [employer] drug information isan informational resource designed to assist licensed healthcare practitioners in caring for their p atients and/or to serve consumers viewing this service as a supplement to, and not a substitute for, the expertise, skill, knowledge and judgment of healthcare practitioners. The absence of a warningfor a given drug or drug combination in no way should be construed to indicate that the drug or drug combination is safe, effective or appropriate for any given patient. [employer] does not assume any responsibility for any aspect of healthcare administered with the aid of information [employer] provides. The information contained herein is not intended to cover all possible uses, directions, precautions, warnings, drug interactions, allergic reactions, or adverse effects. If you have questions about the drugs you are taking, check with your doctor, nurse or pharmacist. Copyright 5381-6533 [employer]. Version: 15.03. Revision Date: 12/04/2018. docusate (oral/rectal) (DOK ue sate) Colace, Diocto, Doc-Q-Lace, Docu, Doculase, Docusil, Docusoft S, DocuSol, Dulcolax Stool Softener, Enemeez Mini, Rashawn-Tin, Pedia-Lax Stool Softener, [place] Stool Softener, Promolaxin, Silace, SurfakStool Softener, Nadia-Q-Lax What is the most important information I should know about docusate? You should not use docusate if you also use mineral oil, unless your doctor tells you to. What is docusate? Docusate is a stool softener that makes bowel movements softer and easier to pass. Docusate is used to relieve occasional constipation (irregularity). There are many brands and forms of docusate available. Not all brands are listed on this leaflet. Docusate may also be used for purposes not listed in this medication guide. What should I discuss with my healthcare provider before using docusate? You should not use docusate if you are allergic to it. Ask a doctor or pharmacist if this medicine is safe to use if you have: stomach pain; nausea; vomiting; or a sudden change in bowel habits that lasts over 2 weeks. Ask a doctor before using this medicine if you are or . Do not give this medicine to a child without medical advice. How should I use docusate? Use exactly as directed on the label, or as prescribed by your doctor. Drink plenty of liquids while you are using docusate. Measure liquid medicine carefully. Use the dosing syringe provided, or use a medicine dose-measuring device (not a kitchen spoon). Do not take the rectal enema by mouth. Rectal medicine is for use only in the rectum. Wash your hands before and after using the enema. To use the enema, lie on your left side with your left leg extended and your right leg slightly bent. Remove the cap from the applicator tip and gently insert the tip into your rectum. Slowly squeezethe bottle to empty the contents into the rectum. After using the enema, lie down on your left side for at least 30 minutes to allow the liquid to distribute throughout your intestines. Avoid using the bathroom, and hold in the enema at least 1 hour, or all night if possible. Read and carefully follow any Instructions for Use provided with your medicine. Ask your doctor or pharmacist if you do not understand these instructions. Docusate generally produces bowel movement in 12 to 72 hours. Call your doctor if your symptoms do not improve after 72 hours. You should not use docusate for longer than 1 week, unless your doctor tells you to. Store at room temperature away from moisture, light, and heat. Do not freeze liquid medicine. What happens if I miss a dose? Since docusate is used when needed, you may not be on a dosing schedule. Skip any missed dose if it's almost time for your next dose. Do not use two doses at one time. What happens if I overdose? Seek emergency medical attention or call the Poison Help line at . What should I avoid while using docusate? Avoid using mineral oil, unless told to do so by a doctor. What are the possible side effects of docusate? Get emergency medical help if you have signs of an allergic reaction: hives; difficult breathing; swelling of your face, lips, tongue, or throat. Stop using docusate and call your doctor at once if: you have rectal bleeding; no bowel movement occurs after using a laxative; you need to use a stool softener for more than 1 week; or rash occurs. Less serious side effects may be more likely, and you may have none at all. This is not a complete list of side effects and others may occur. Call your doctor for medical advice about side effects. You may report side effects to FDA at 9-660-IUM-8552. What other drugs will affect docusate? Other drugs may affect docusate, including prescription and zzlr-gui-jmqjrda medicines, vitamins, and herbal products. Tell your doctor about all other medicines you use. Where can I get more information? Your pharmacist can provide more information about docusate. Remember, keep this and all other medicines out of the reach of children, never share your medicines with others, and use this medication only for the indication prescribed. Every effort has been made to ensure that the information provided by [employer]. ('[employer]') is accurate, up-to-date, and complete, but no guarantee is made to that effect. Drug information contained herein may be time sensitive. [employer] information has been compiled for use by healthcare practitioners and consumers in the [place] and therefore [employer] does not warrant that uses outside of the [place] are appropriate, unless specifically indicated otherwise. [employer] drug information does not endorse drugs, diagnose patients or recommend therapy. [employer] drug information isan informational resource designed to assist licensed healthcare practitioners in caring for their p atients and/or to serve consumers viewing this service as a supplement to, and not a substitute for, the expertise, skill, knowledge and judgment of healthcare practitioners. The absence of a warningfor a given drug or drug combination in no way should be construed to indicate that the drug or drug combination is safe, effective or appropriate for any given patient. [employer] does not assume any responsibility for any aspect of healthcare administered with the aid of information [employer] provides. The information contained herein is not intended to cover all possible uses, directions, precautions, warnings, drug interactions, allergic reactions, or adverse effects. If you have questions about the drugs you are taking, check with your doctor, nurse or pharmacist. Copyright 9703-0915 [employer]. Version: 5.01. Revision Date: 03/11/2021. Education Materials Controlling High Blood Pressure High blood pressure (hypertension) is often called the silent killer. This is because many people who have it, don t know it. High blood pressure can raise your risk of heart attack, stroke, heart disease, and heart failure. Controlling your blood pressure can decrease your risk of these problems. Know your blood pressure and remember to check it regularly. Doing so can save your life. Blood pressure measurements are given as 2 numbers. Systolic blood pressure is the upper number. This is the pressure when the heart contracts. Diastolic blood pressure is the lower number. This is the pressure when the heart relaxes between beats. Blood pressure is categorized as normal, elevated, or stage 1 or stage 2 high blood pressure: Normal blood pressure is systolic of less than 120 and diastolic of less than 80 (120/80) Elevated blood pressure is systolic of 120 to 129 and diastolic less than 80 Stage 1 high blood pressure is systolic is 130 to 139 or diastolic between 80 to 89 Stage 2 high blood pressure is when systolic is 140 or higher or the diastolic is 90 or higher Here are some things you can do to help control your blood pressure. Choose heart-healthy foods Select low-salt, low-fat foods. Limit sodium intake to 2,400 mg per day or the amount suggested by your healthcare provider. Limit canned, dried, cured, packaged, and fast foods. These can contain a lot of salt. Eat 8 to 10 servings of fruits and vegetables every day. Choose lean meats, fish, or chicken. Eat whole-grain pasta, brown rice, and beans. Eat 2 to 3 servings of low-fat or fat-free dairy products. Ask your doctor about the DASH eating plan. This plan helps reduce blood pressure. When you go to a restaurant, ask that your meal be prepared with no added salt. Maintain a healthy weight Ask your healthcare provider how many calories to eat a day. Then stick to that number. Ask your healthcare provider what weight range is healthiest for you. If you are overweight, a weight loss of only 3% to 5% of your body weight can help lower blood pressure. Generally, a good weightloss goal is to lose 10% of your body weight in a year. Limit snacks and sweets. Get regular exercise. Get up and get active Choose activities you enjoy. Find ones you can do with friends or family. This includes bicycling, dancing, walking, and jogging. Park farther away from building entrances. Use stairs instead of the elevator. When you can, walk or bike instead of driving. [place] leaves, garden, or do household repairs. Be active at a moderate to vigorous level of physical activity for at least 40 minutes for a minimum of 3 to 4 days a week. Manage stress Make time to relax and enjoy life. Find time to laugh. Communicate your concerns with your loved ones and your healthcare provider. Visit with family and friends, and keep up with hobbies. Limit alcohol and quit smoking Men should have no more than 2 drinks per day. Women should have no more than 1 drink per day. Talk with your healthcare provider about quitting smoking. Smoking significantly increases your risk for heart disease and stroke. Ask your healthcare provider about community smoking cessation programs and other options. Medicines If lifestyle changes aren t enough, your healthcare provider may prescribe high blood pressure medicine. Take all medicines as prescribed. If you have any questions about your medicines, ask your healthcare provider before stopping or changing them. 5928-6926 [employer]. [address] [place] [address]. All rights reserved. This information is not intended as a substitute for professional medical care. Always follow yourhealthcare professional's instructions. Additional Information VACCINATE! IT SAVES LIVES! Members of the community who have not yet received the COVID-19 vaccine and would like to receive it can visit one of [facility] vaccine clinics. There are many vaccine clinic locations within the [facility]. For locations and available times, please visit [email or web address]. It is important to note that some COVID mobile vaccine clinics are held outdoors and may be canceled in rainy orstormy conditions. To learn more about pediatric vaccinations (ages 5-11), we invite you to visit the [facility] webpage. [email or web address]/[email or web address]-[email or web address] stions.htmlTo learn more about the COVID-19 vaccine, we invite you to visit the [employer] website for a list of frequently asked questions. [email or web address] [facility] Patient Portal Access Instructions: Stay connected with your healthcare team and access your personal medical information anytime with the [facility] Patient Portal. If you would like a full copy of your medical records please contact the [facility] Medical Records Department Monday through Monday between 8a.m. and 4:30p.m. Please follow the directions below to access the portal: 1.Access the email account you provided upon registration to the [facility].2.Look for an invitation email from [facility].3.Open the email and access the invitation link: [facility] to [facility].Fill in the required cifuentes to create your account. Sign into [email or web address] with your username and password that you created in the above steps to stay up to date. You can then view a summary of results, a summary of your visits, and the ability to download your summaries to your computer or send the information securely to a physician. Remember that your healthcare information is confidential, so carefully consider who you will allow to register on the [facility] Patient Portal for access to your information. You can also access the [facility] Patient Portal on the [employer] [place]. Simply click on Health Records under [place] and then click on the [employer] logo. HOW TO SAFELY DISPOSE OF PRESCRIPTION MEDICATIONS Please use one of the following methods to safely dispose of your unused medications. 1.Use a drug disposal kit: the drug disposal pouch allows you to safely discard your old and unuseddrugs. Ask your nurse to give you one when you are discharged.2.Visit a local take-back location: Many local pharmacies and police departments have programs that collect old and unwanted prescriptiondrugs. Call your local pharmacy or go to http://bit.[employer]3R4Fx2l to find one close to you.3.Make use of household items: Use cat litter or old coffee grounds to dispose medications if other options arenot available. Mix your drugs with these household products, seal them in an airtight container andthrow it into the garbage. Call [facility]: [phone] to be sure your drugs can be disposed of in this way. Some medicines may require a different approach.4.Never flush your medications down the toilet. IF YOU HAVE BEEN PRESCRIBED AN OPIOIDS FOR PAIN If you have been prescribed an opioid (such as hydrocodone, oxycodone or morphine), it is critical to understand the possible side effects and risks of opioid pain medications. Even when taken as directed, opioids can have several side effects including: Tolerance, meaning you might need to take more of a medication for the same pain relief. Nausea, vomiting and/or constipation. Sleepiness, dizziness, dry mouth, confusion, depression or itching. Physical dependence, meaning you have withdrawal symptoms when a medication is stopped ? this can develop within a few days. KNOW YOUR RESPONSIBILITIES It is important to know exactly how much and how often to take the opioid pain medications you are prescribed. Never take opioids in higher amounts or more often than prescribed. Do not combine opioids with alcohol or other drugs that cause drowsiness, such as benzodiazepines, also known as benzos,including diazepam and alprazolam, muscle relaxants or sleep aids. Never sell or share prescriptionopioids. This is illegal. Store opioids in a secure place and out of reach of others (including children, family, friends and visitors). The last page(s) of this document has been signed and retained as a CHART COPY Signatures Patient Education Materials Controlling High Blood Pressure Medication Leaflets lisinopril, docusate (oral/rectal) My discharge plan and instructions have been reviewed and explained to me and I,BIBIANA STRICKLAND S understand my current condition and have read and understand these discharge instructions. I have received a written copy of the plan/instructions. If I have questions, I am aware that I should contact my doctor. Patient/Client Engagement Specialist Signature: Date/Time: Relationship to Patient: Witness Name/Signature: Date/Time: [facility]01-31-2023 Note ORIGINAL EXAMINATION: THREE XRAY VIEWS OF THE ABDOMEN 03/15/2022 12:33 pm COMPARISON: None. HISTORY: ORDERING SYSTEM PROVIDED HISTORY: Reason for Exam: constipation FINDINGS: Bowel gas pattern is nonobstructive. There are no dilated loops of bowel. There is a moderate amount stool in the colon. There are no air-fluid levels. No evidence of pneumo peritoneum. Phleboliths are seen in the pelvis. IMPRESSION: Nonobstructive bowel gas pattern. Moderate amount of stool in the colon. Interpreted by: Jovani Dan MD Preliminary Report By: Jovani Dan MD Electronically signed By Jovani Dan MD Dictated Date: 03/15/2022 12:39:35 PM Prelim Date: 03/15/2022 12:40:48 PM Sign Date: 03/15/2022 12:40:48 PM Ordering Provider: [facility]01-31-2023 Note ORIGINAL EXAMINATION: THREE XRAY VIEWS OF THE ABDOMEN 03/15/2022 12:33 pm COMPARISON: None. HISTORY: ORDERING SYSTEM PROVIDED HISTORY: Reason for Exam: constipation FINDINGS: Bowel gas pattern is nonobstructive. There are no dilated loops of bowel. There is a moderate amount stool in the colon. There are no air-fluid levels. No evidence of pneumo peritoneum. Phleboliths are seen in the pelvis. IMPRESSION: Nonobstructive bowel gas pattern. Moderate amount of stool in the colon. Interpreted by: Jovani Dan MD Preliminary Report By: Jovani Dan MD Electronically signed By Jovani Dan MD Dictated Date: 03/15/2022 12:39:35 PM Prelim Date: 03/15/2022 12:40:48 PM Sign Date: 03/15/2022 12:40:48 PM [facility] Appointment Date:03/21/2022 09:00:00 AM Scheduled Provider:GOLD FU Location:[facility] Appointment Type:PC OV ED Follow Up Diagnostic Tests Pending * Urine Culture 03/15/22 [facility] Evaluation + Plan note Future Appointments Appointment Date:06/20/2022 09:00:00 AM Scheduled Provider:GOLD FU APRN-MARIA C Location:[facility] Appointment Type:PC OV [facility] Evaluation + Plan note Future Appointments Appointment Date:02/28/2023 08:00:00 AM Scheduled Provider:GOLD FU APRN-MARIA C Location:[facility] Appointment Type:PC Wellness Medicare [facility] Hospital course Narrative No data available for this section [facility] Hospital Discharge instructions No data available for this section [facility] Progress note No data available for this section [facility] Summary Purpose Family History No Family History Records Found No data available for this section Advance Directives No Advanced Directives Records Found Additional Source Comments Care Team (unrecognized sect ion and content) Care Team Personnel Name: PHYSICIAN, NONE Position: Physician Member Role: Primary Care Physician Name: WHIT WEIR DO Position: Resident Member Role: Resident Address: Address: [address] [facility] [place] [address]- Name: BLAYNE Pagan Position: ED RN Member Role: ED RN Name: ANNEMARIE THORPE MD Position: ED Physician Member Role: ED Physician Address: Address: [address] [place] [address]- Patient Care team informatio n (unrecognized section and content) Care Team Personnel Name: PHYSICIAN, NONE Position: Physician Member Role: Primary Care Physician Care Team Related Persons Name: MARCELA STRICKLAND Care Team Personnel Name: GOLD FU APRN-ESOL TEACHER Position: P4 [employer] Member Role: Primary Care Physician Address: Address: [address] [place], [place] [address] Care Team Related Persons Name: MARCELA STRICKLAND Care Team Personnel Name: GOLD FU SENIOR IT ASSISTANT-ESOL TEACHER Position: P4 [employer] Member Role: Primary Care Physician Address: Address: [address] [place] [address]- Care Team Related Persons Name: MARCELA STRICKLAND INFORMATION SOURCE (unrecogn ized section and content) FOR RECORDS PERTAINING TO PATIENTS WHO ARE OR HAVE BEEN ENROLLED IN A CHEMICAL DEPENDENCY/SUBSTANCEABUSE PROGRAM, SOME INFORMATION MAY BE OMITTED. This clinical summary was aggregated from multiple sources. Caution should be exercised in using it in the provision of clinical care. This summary normalizes information from multiple sources, and as a consequence, information in this document may materially change the coding, format and clinical context of patient data. In addition, data may be omitted in some cases. CLINICAL DECISIONS SHOULD BE BASED ON THE PRIMARY CLINICAL RECORDS. [facility] [employer] [facility]. provides no warranty or guarantee of the accuracy or completeness of information in this document.
== END | disposition home or self-care (01) ==
LOC: LABSPEC 13:06
PROVIDERS: PCP Nurse Practitioner Adult Health
DX: T81.49XA Infection following a procedure, other surgical site, initial encounter (principal); X58.XXXA Exposure to other specified factors, initial encounter
CPT/HCPCS: 82565; 84460; 85025

== ENCOUNTER → 2023-03-20 | Outpatient (CLI) | payer MEDICARE, SELFPAY ==
[2023-03-20 13:54] LABS: Absolute Lymphocyte Count 1.81 X10^3/uL (0.83-4.51); Absolute Neutrophil Count 5.7 X10^3/uL (2.0-7.7); Basophil# 0.05 X10^3/uL; Basophil% 0.6 % (0-1); Eosinophil# 0.16 X10^3/uL; Eosinophils% 1.9 % (0-5); Hemoglobin 10.1 g/dL (12.0-15.0); Lymphocyte # 1.81 X10^3/ul (0.83-4.51); Lymphocyte % 21.7 % (19-41); Mean Corp Hgb Conc 30.6 g/dL (32-36); Mean Corpuscular Hgb 27.6 pg (27.0-32.0); Mean Corpuscular Volume 90.2 fL (81-99); Mean Platelet Vol. 9.6 fl (6.2-12.0); Monocyte# 0.57 X10^3/uL; Monocyte% 6.8 % (0-10); NRBC Flagged by Analyzer 0 % (0-5); Neutrophil # 5.73 X10^3/uL (2.7-7.7); Neutrophil % 68.5 % (47-70); Platelet Count 392 K/mm3 (150-450); Red Blood Count 3.66 M/mm3 (4.2-5.4); White Blood Count 8.4 K/mm3 (4.4-11.0)
[2023-03-20 14:10] LABS: Alanine Aminotransfer ALT/SGPT 13 U/L (13-56); Creatinine, Serum 0.85 mg/dL (0.55-1.02); EST Glomerular Filtration Rate 70 mL/min (>60); Est Glom Filt Rate - Afr Amer 85 mL/min (>60)
== END | disposition home or self-care (01) ==
PROVIDERS: PCP Nurse Practitioner Adult Health
DX: T81.49XA Infection following a procedure, other surgical site, initial encounter (principal); X58.XXXA Exposure to other specified factors, initial encounter
CPT/HCPCS: 82565; 84460; 85025

== ENCOUNTER → 2023-03-27 | Outpatient (CLI) | payer MEDICARE, SELFPAY ==
[2023-03-27 14:32] LABS: Absolute Lymphocyte Count 1.65 X10^3/uL (0.83-4.51); Absolute Neutrophil Count 6.2 X10^3/uL (2.0-7.7); Basophil# 0.06 X10^3/uL; Basophil% 0.7 % (0-1); Eosinophil# 0.15 X10^3/uL; Eosinophils% 1.7 % (0-5); Hematocrit 33.3 % (37-47); Hemoglobin 10.1 g/dL (12.0-15.0); Lymphocyte # 1.65 X10^3/ul (0.83-4.51); Lymphocyte % 18.8 % (19-41); Mean Corp Hgb Conc 30.3 g/dL (32-36); Mean Corpuscular Hgb 27.5 pg (27.0-32.0); Mean Corpuscular Volume 90.7 fL (81-99); Mean Platelet Vol. 9.9 fl (6.2-12.0); Monocyte# 0.65 X10^3/uL; Monocyte% 7.4 % (0-10); NRBC Flagged by Analyzer 0 % (0-5); Neutrophil # 6.23 X10^3/uL (2.7-7.7); Neutrophil % 70.9 % (47-70); Platelet Count 357 K/mm3 (150-450); RBC Distribution Width CV 13.2 % (11.6-14.6); RBC Distribution Width SD 44.2 fl (35.1-43.9); Red Blood Count 3.67 M/mm3 (4.2-5.4); White Blood Count 8.8 K/mm3 (4.4-11.0)
[2023-03-27 14:45] LABS: Alanine Aminotransfer ALT/SGPT 17 U/L (13-56); Creatinine, Serum 0.81 mg/dL (0.55-1.02); EST Glomerular Filtration Rate 74 mL/min (>60); Est Glom Filt Rate - Afr Amer 90 mL/min (>60)
--- OUTSIDE RECORDS SUMMARY | 2023-03-27 18:56 | XMS RPT_ITS | CCD ---
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 Name Role Phone PHYSICIAN, NONE Primary Care Physician Unavailab le MAST WELFARE INVESTIGATOR-INTERNATIONAL ACCOUNTANT, GOLD Primary Care Physician ([phone]) MAST WELFARE INVESTIGATOR-INTERNATIONAL ACCOUNTANT, GOLD Attending Unavailabl e MAST WELFARE INVESTIGATOR-INTERNATIONAL ACCOUNTANT, GOLD Primary Care Unavailabl e MAST WELFARE INVESTIGATOR-INTERNATIONAL ACCOUNTANT, GOLD Attending Unavailabl e PHYSICIAN, NONE Primary Care Unavailable ANNEMARIE THORPE MD Attending Unavailable PHYSICIAN, NONE Primary Care Unavailable MAST WELFARE INVESTIGATOR-INTERNATIONAL ACCOUNTANT, GOLD Attending Unavailabl e PHYSICIAN, NONE Primary Care Unavailable GAGE OCAMPO, DR WETZEL Attending Unavailabl e MAST WELFARE INVESTIGATOR-INTERNATIONAL ACCOUNTANT, GOLD Primary Care Unavailabl e Medications Current [...] constipation, # 60 cap(s), 6 Refill(s), Pharmacy: [facility] #[id number], Hypokalemia Constipation, 168, cm, 03/21/22 8:56:00 EST, [...] Non-Invasive [address] DAMARI ALMONTE MD [facility] 05-27-2022 11:10-0400 Heart rate 86 /min DR DAMARI ALMONTE MD [facility] 05-27-2022 11:10-0400 Respiratory rate 14 /min DR DAMARI ALMONTE MD [facility] 05-27-2022 11:10-0400 Systolic Blood Pressure Non-Invasive [address] DAMARI ALMONTE MD [facility] 05-27-2022 11:05-0400 Diastolic Blood Pressure Non-Invasive [address] DAMARI ALMONTE MD [facility] 05-27-2022 11:05-0400 Heart rate 83 /min DR DAMARI ALMONTE MD [facility] 05-27-2022 11:05-0400 Respiratory rate 24 /min DR DAMARI ALMONTE MD [facility] 05-27-2022 11:05-0400 Systolic Blood Pressure Non-Invasive [address] DAMARI ALMONTE MD [facility] 05-27-2022 11:00-0400 Diastolic Blood Pressure Non-Invasive [address] DAMARI ALMONTE MD [facility] 05-27-2022 11:00-0400 Heart rate 82 /min DR DAMARI ALMONTE MD [facility] 05-27-2022 11:00-0400 Respiratory rate 22 /min DR DAMARI ALMONTE MD [facility] 05-27-2022 10:50-0400 Respiratory Rate - Anes 18 br/min DR DAMARI ALMONTE MD [facility] 05-27-2022 10:45-0400 Respiratory Rate - Anes 22 br/min DR DAMARI ALMONTE MD [facility] 05-27-2022 10:40-0400 Respiratory Rate - Anes 0 br/min DR DAMARI ALMONTE MD [facility] 05-27-2022 10:05-[address] DAMARI ALMONTE MD [facility] 05-27-2022 10:05-[address] DAMARI ALMONTE MD [facility] 05-27-2022 10:05-0400 Body height [address] DAMARI ALMONTE MD [facility] 05-27-2022 10:05-0400 Body temperature 97.7 [degF] DR DAMARI ALMONTE MD [facility] 05-27-2022 10:05-0400 Body weight 90.[address] DAMARI ALMONTE MD [facility] 05-27-2022 10:05-0400 Body weight 32.21 kg/m2 DR DAMARI ALMONTE MD [facility] 05-27-2022 10:05-0400 Heart rate 101 /min DR DAMARI ALMONTE MD [facility] 03-15-2022 13:38-0500 Diastolic Blood Pressure Non-Invasive 81 1 ANNEMARIE THORPE MD [facility] 03-15-2022 13:38-0500 Heart rate 79 /min ANNEMARIE THORPE MD [facility] 03-15-2022 13:38-0500 Respiratory rate 16 /min ANNEMARIE THORPE MD [facility] 03-15-2022 13:38-0500 Systolic Blood Pressure Non-Invasive 187 1 ANNEMARIE THORPE MD [facility] 03-15-2022 13:08-0500 Diastolic Blood Pressure Non-Invasive 74 1 ANNEMARIE THORPE MD [facility] 03-15-2022 13:08-0500 Heart rate 84 /min ANNEMARIE THORPE MD [facility] 03-15-2022 13:08-0500 Respiratory rate 16 /min ANNEMARIE THORPE MD [facility] 03-15-2022 13:08-0500 Systolic Blood Pressure Non-Invasive 171 1 ANNEMARIE THORPE MD [facility] 03-15-2022 10:59-0500 Body temperature 97.7 [degF] ANNEMARIE THORPE MD [facility] 03-15-2022 10:59-0500 Diastolic Blood Pressure Non-Invasive 91 1 ANNEMARIE THORPE MD [facility] 03-15-2022 10:59-0500 Heart rate 93 /min ANNEMARIE THORPE MD [facility] 03-15-2022 10:59-0500 Respiratory rate 16 /min ANNEMARIE THORPE MD [facility] 03-15-2022 10:59-0500 Systolic Blood Pressure Non-Invasive 202 1 ANNEMARIE THORPE MD [facility] Encounters Encounter Date Encounter Type Care Provider Facility Start: 10-10-2022 End: 10-11-2022 ambulatory GOLD MAST WELFARE INVESTIGATOR-INTERNATIONAL ACCOUNTANT Facility:B Start: 10-10-2022 End: 10-10-2022 Patient encounter procedure GOLD MAST WELFARE INVESTIGATOR-INTERNATIONAL ACCOUNTANT [facility] Start: 05-27-2022 End: 05-27-[address] DAMARI ALMONTE MD Facility:[facility] Start: 05-27-2022 End: 05-27-[address] DAMARI ALMONTE MD [facility] Start: 05-23-2022 End: 05-24-2022 ambulatory GOLD MAST WELFARE INVESTIGATOR-INTERNATIONAL ACCOUNTANT Facility:[facility] Start: 05-23-2022 End: 05-23-2022 Patient encounter procedure GOLD MAST WELFARE INVESTIGATOR-INTERNATIONAL ACCOUNTANT [facility] Start: 03-24-2022 ambulatory GOLD MAST WELFARE INVESTIGATOR-INTERNATIONAL ACCOUNTANT Fa cility:A Start: 03-15-2022 End: 03-15-2022 Emergency department patient visit ANNEMARIE THORPE MD Facility:[facility] Start: 03-15-2022 End: 03-15-2022 Emergency department patient visit ANNEMARIE THORPE MD [facility] Procedures Date Procedure Procedure Detail Performing Clinician Hysterectomy ANNEMARIE Santana Payers Date Payer Category Payer Unknown [id number] 1950 Unknown [id number] [id number] [id number] 1950 Unknown [id number] 2.16.8 [id number] 1950 Unknown [id number] 2.16.8 [id number] 1950 Unknown [id number] 2.16.8 [id number] 1950 Unknown [id number] 2.16.8 [id number] Social History Date Type Detail Facility Tobacco smoking status No Smokin g Status Entered [facility] Sex Assigned At Female [facility] Start: 03-21-2022 Tobacco smoking status Never s moked tobacco (finding) [facility] Functional Status Date Assessment Result Facility 05-27-2022 Functional Status Awake [facility] 05-27-2022 Functional Status Maintained [facility] 03-15-2022 Functional Status Independent [facility] 03-15-2022 Functional Status Standard Safety ID band on [facility] Mental Status Date Assessment Result Facility 05-27-2022 Mental Status Oriented x 4 [facility] 05-27-2022 Mental Status [facility] 03-15-2022 Mental Status Orientation Oriented x 4 [facility] 03-15-2022 Mental Status [facility] Clinical Notes 03-15-2022 to 05-27-2022 Note Date & Type Note Facility [facility] H[facility]ORY AN D PHYSICIAL CHIEF COMPLAINT: HISTORY OF PRESENT ILLNESS: REVIEW OF SYSTEMS: ACTIVE PROBLEMS: (12) Abdominal pain (73255518) Bloating (912251800) Constipation (25658257) Encounter for examination following treatment at hospital (376693575) HTN (hypertension) (1827207987) Numbness and tingling of both feet (993099091) Numbness in both hands (166046921) Screening for colon cancer (008535614) Spinal stenosis in cervical region (316133305) Spinal stenosis of lumbar region (83642205) Unsteady gait (27081875) Weakness (30702599) MEDICATIONS: Active Inpt Meds: None Active PRN Meds: None One Time Meds: None Active IV Meds: Lactated Ringers Infusion 1,000 mL (LR 1,000 mL) Start: 05/27/22 10:05:00 EDT, Rate: 50 mL/hr, 05/27/22 10:05:00 EDT ALLERGIES: (1) NKA FAMILY HISTORY: SOCIAL HISTORY: PHYSICAL EXAM: VITALS: UtjpkeRgufUYEphwfWTToJ2DUQ6EyumHy(kg) 05/27 10:0536.5--8534687IJ41/14 90.9 24 Hr Tmax: 36.5 at 05/27 [...] Appointment Date:06/20/2022 09:00:00 AM Scheduled Provider:GOLD FU Location:[facility] Appointment Type:[facility] 04-14-2023 Hospital Discharge instructions Patient Education 05/27/2022 10:56:57 Nausea and Vomiting, Adult, Dhrk-ct-Pcdb Nausea and Vomiting, Adult Nausea is feeling [...] fruit juice). ?Low-calorie sports drinks. Eat bland, zgzf-ca-cnyqdh foods in small amounts as you are able, such as: ?Bananas. ?Applesauce. ?Rice. ?Low-fat (lean) meats. ?Radar Base. ?Crackers. Avoid drinking fluids that have a lot of sugar or caffeine in them. This includes energy drinks, sports drinks, and soda. Avoid alcohol. Avoid spicy or fatty foods. General instructions Take zavf-dce-slnwqpe and prescription medicines only as told by your doctor. Drink enough fluid to keep your pee (urine) pale yellow. Wash your hands often with soap and water. If you cannot use soap and water, use hand moving picture producer. Make sure that all people in your [...] too much water in your body. Take dsim-qnr-jjpzqtp and prescription medicines only as told by [...] 07/18/2008 Document Revised: 05/24/2019 Document Reviewed: 07/10/2018 [employer] Patient Education 2020 [employer]. 05/27/2022 10:56:56 Monitored Anesthesia Care, Care After [...] before eating solid foods. General instructions Take uujn-rcg-renxyru and prescription medicines only as told by [...] 05/22/2016 Document Revised: 04/30/2018 Document Reviewed: 05/22/2016 [employer] Patient Education 2020 [employer]. 05/27/2022 10:56:53 Colon Polyps Colon Polyps Polyps [...] 10/26/2004 Document Revised: 05/17/2018 Document Reviewed: 05/17/2018 [employer] Patient Education TabbedOut Follow Up Care 05/16/2022 14:38:04 With:DAMARI ALMONTE Address: [address] [facility] [address] [place] [address]- [phone] Business (1) When: Unknown [facility] 04-14-2023 Note Discharge Instructions Thank you for allowing [facility] to assist you with your healthcare needs. The following is importantdischarge information regarding your hospital visit. Your Care Team GOLD FU DR Your Diagnosis COLON POLYPS What to do next Instructions From Your Doctor NO DRIVING FOR 24 HOURS Scheduled Follow-Up Appointments Appointment Type When With Where Contact Abdoul BEAR 06/20/2022 09:00 AM EDT GOLD FU [facility] [address] [place] [address] Follow Up Appointments Follow Up with DAMARI ALMONTE When Where: [address] [facility] [address] [place] [address] [phone] Business (1) Allergies NKA Medications Please ask [...] juice). ? Low-calorie sports drinks. Eat bland, pwvs-td-rlowio foods in small amounts as you are able, such as: ? Bananas. ? Applesauce. ? Rice. ? Low-fat (lean) meats. ? Radar Base. ? Crackers. Avoid drinking fluids that have a lot of sugar or caffeine in them. This includes energy drinks, sports drinks, and soda. Avoid alcohol. Avoid spicy or fatty foods. General instructions Take ycwe-zco-utuuaqp and prescription medicines only as told by your doctor. Drink enough fluid to keep your pee (urine) pale yellow. Wash your hands often with soap and water. If you cannot use soap and water, use hand moving picture producer. Make sure that all people in your [...] too much water in your body. Take donq-erl-uihtwsi and prescription medicines only as told by [...] 07/18/2008 Document Revised: 05/24/2019 Document Reviewed: 07/10/2018 [employer] Patient Education 2020 [employer]. Monitored Anesthesia Care, Care After These instructions [...] before eating solid foods. General instructions Take povy-xsc-ppbhwtf and prescription medicines only as told by [...] 05/22/2016 Document Revised: 04/30/2018 Document Reviewed: 05/22/2016 [employer] Patient Education 2020 [employer]. Colon Polyps Polyps are tissue growths inside [...] Document Reviewed: 05/17/2018 Elsevier Patient Education 2020 [employer] Additional Information VACCINATE! IT SAVES LIVES! Members of the community who have not yet received the COVID-19 vaccine and would like to receive it can visit one of [facility] vaccine clinics. There are many vaccine clinic locations within the [facility]. For locations and available times, please visit [email or web address] It is important to note that some COVID mobile vaccine clinics are held outdoors and may be canceled in rainy or stormy conditions. To learn more about pediatric vaccinations (ages 5-11), we invite you to visit the [employer] webpage. https://www.[email or web address].org/pages/7201-Gudjd-Kcbsuzmwolg-Wjsyrqsrfb-Aoatr-Nww stions.htmlTo learn more about the COVID-19 vaccine, we invite you to visit the CDC website for a list of frequently asked questions. https://www.cdc.gov/coronavirus/2019-ncov/vaccines/faq.html [facility] [employer] Patient Portal Access Instructions: Stay connected with your healthcare team and access your personal medical information anytime with the [employer] Patient Portal.If you would like a full copy of your medical records, please contact the [facility] Medical Records Department, Monday through Monday between 8a.m. and 4:30p.m. Please follow the directions below to access the portal: 1.Access the email account you provided upon registration to the [facility].2.Look for an invitation email from [facility].3.Open the email and access the invitation link: Accept Invitation to [facility].Fill in the required cifuentes to create your account. Sign into www.[email or web address] with your username and password that you [...] you will allow to register on the [facility] Patient Portal for access to your information. You can also access the [facility] Patient Portal on the [facility] [employer] [facility]. Simply click on Health Records under [employer] and then click on the [employer] logo. HOW TO SAFELY DISPOSE OF PRESCRIPTION [...] Call your local pharmacy or go to [email or web address] to find one close to you.3.Make use of household items: Use cat litter or old coffee grounds to dispose medications if other options arenot available. Mix your drugs with these household products, seal them in an airtight container andthrow it into the garbage. Call [facility]: [phone] to be sure your drugs can be [...] Patient Education Materials Nausea and Vomiting, Adult, Kcch-di-Ivdm Monitored Anesthesia Care, Care After Colon Polyps Medication Leaflets My discharge plan and instructions have been reviewed and explained to me and I,BIBIANA STRICKLAND understand my current condition and have read and understand these discharge instructions. I have received a written copy of the plan/instructions. If I have questions, I am aware that I should contact my doctor. Patient/National Recruiter Signature: Date/Time: Relationship to Patient: Witness Name/Signature: Date/Time: [facility]04-14-2023 Anesthesiology Consult note Patient: BIBIANA STRICKLAND [...] Problem list: Medical Bloating / SNOMED CT 348877126 / Confirmed Abdominal pain / SNOMED CT 31096845 / Confirmed Unsteady gait / SNOMED CT 48393653 / Confirmed Weakness / SNOMED CT 28628320 / Confirmed Constipation / SNOMED CT 62948606 / Confirmed HTN (hypertension) / SNOMED CT 5588196013 / Confirmed Numbness in both hands / SNOMED CT 715680985 / Confirmed Numbness and tingling of both feet / SNOMED CT 945196642 / Confirmed Encounter for examination following treatment at hospital / SNOMED CT 458220193 / Confirmed Screening for colon cancer / SNOMED CT 651268725 / Confirmed Spinal stenosis in cervical region / SNOMED CT 142476430 / Confirmed Spinal stenosis of lumbar region / SNOMED CT 27422463 / Confirmed, Active Problems (12) Abdominal pain [...] Rheumatic fever Father () Procedure history: Hysterectomy (207960230). Social History Social & Psychosocial Habits Alcohol [...] Weight Lbs 200 lb Weight Method Stated [place] Body Weight 59.63 kg BSA Admission 2 [...] Surgeon SN - CAt - Role Performed ACTUARIAL SCIENCE PROFESSOR SN - CAt - Role Performed Government Guard 1 SN - CAt - Role Performed Disaster Recovery Analyst 05/27/2022 10:24 EDT Systolic Blood Pressure Non-Invasive 186 mmHg HI Diastolic Blood Pressure Non-Invasive 87 mmHg 05/27/2022 10:23 EDT Lactated Ringers Injection Begin Bag 1,000 mL mL 05/27/2022 10:05 EDT Designated Person #1 We May Share ARSENIO MEDRANO [phone] Designated Person #1 Relationship Spouse Height 168 cm Height in inches 66.1 inch(es) Admission Weight 90.9 kg Weight Lbs 200 lb Weight Method Stated [place] Body Weight 59.63 kg BSA Admission 2 [...] difficulties Status Skin Temperature Warm Skin Description Elrama Skin Integrity Intact Wrist Right 05/27/2022 22 [...] evident Teaching Method Explanation Preferred Written Language [place] Islander Preferred Spoken Language [place] Islander Information Given by Patient Patient's Current Physicians [...] EDT Mora LEYVA . Assessment and Plan [place] Society of Anesthesiologists (ASA) physical status classification: Class II. Anesthetic Preoperative Plan Anesthetic technique: MAC. Postoperative pain management: Per surgeon. Informed consent: signed by patient. Digitally Signed by WALTER LOPES on 05/27/2022 10:35 AM [facility]04-14-2023 Note [facility] ADMISSION HISTORY AND PHYSICIAL CHIEF COMPLAINT: HISTORY OF PRESENT ILLNESS: REVIEW OF SYSTEMS: ACTIVE PROBLEMS: (12) Abdominal pain (04737860) Bloating (792994013) Constipation (03681053) Encounter for examination following treatment at hospital (457662590) HTN (hypertension) (8023570169) Numbness and tingling of both feet (998736635) Numbness in both hands (921791600) Screening for colon cancer (482932557) Spinal stenosis in cervical region (576163223) Spinal stenosis of lumbar region (07664035) Unsteady gait (91674781) Weakness (35898926) MEDICATIONS: Active Inpt Meds: None Active PRN Meds: None One Time Meds: None Active IV Meds: Lactated Ringers Infusion 1,000 mL (LR 1,000 mL) Start: 05/27/22 10:05:00 EDT, Rate: 50 mL/hr, 05/27/22 10:05:00 EDT ALLERGIES: (1) NKA FAMILY HISTORY: SOCIAL HISTORY: PHYSICAL EXAM: VITALS: BwayrdHmquIWNfrnnJYOoX6UCN0QlfnDv(kg) 05/27 10:0536.5--5221729LX49/14 90.9 24 Hr Tmax: 36.5 at 05/27 [...] DAMARI ALMONTE MD on 05/27/2022 10:34 AM [facility]02-02-2023 Note. MICRO - Microbiology PROCEDURE: Urine [...] Locations *1: This test was performed at: [facility], [address] [place] [address], [phone]- , [facility] ([place])03-15-2022 Hospital Discharge instructions Patient Education 03/15/2022 12:59:20 [...] can, walk or bike instead of driving. Lincoln leaves, garden, or do household repairs. Be [...] healthcare provider before stopping or changing them. 1996-9010 [employer]. [address] [place] [address]. All rights reserved. This information is not intended as a substitute for professional medical care. Always follow yourhealthcare professional's instructions. Follow Up Care 03/15/2022 10:58:20 With:DAMARI ALMONTE MD Address: [address] [phone] When:5 to 7 days With:Follow up with primary care provider Address:Unknown When:2-4 days With:Call Physician Referral Address:Unknown When:2-4 days [facility] 01-31-2023 Note Discharge Instructions Thank you for allowing [facility] to assist you with your healthcare needs. [...] Where: [address] [place] [address]- [phone] Follow Up with Follow up with primary [...] have an allergic reaction if you are -Algerian. Call your doctor at once if you [...] may report side effects to FDA at 8-382-LCH-8321. What other drugs will affect lisinopril? Tell [...] drugs may affect lisinopril, including prescription and srxr-pya-vplskyn medicines, vitamins, and herbal products. Not all [...] to ensure that the information provided by [employer]. ('[employer]') is accurate, up-to-date, and complete, but no guarantee is made to that effect. Drug information contained herein may be time sensitive. [employer] information has been compiled for use by healthcare practitioners and consumers in the [place] and therefore [employer] does not warrant that uses outside of the [place] are appropriate, unless specifically indicated otherwise. [employer] drug information does not endorse drugs, diagnose patients or recommend therapy. [employer] drug information isan informational resource designed to [...] effective or appropriate for any given patient. [employer] does not assume any responsibility for any aspect of healthcare administered with the aid of information [employer] provides. The information contained herein is not intended to cover all possible uses, directions, precautions, warnings, drug interactions, allergic reactions, or adverse effects. If you have questions about the drugs you are taking, check with your doctor, nurse or pharmacist. Copyright 4827-7355 [employer]. Version: 15.03. Revision Date: 12/04/2018. docusate (oral/rectal) [...] may report side effects to FDA at 2-594-HYH-7094. What other drugs will affect docusate? Other drugs may affect docusate, including prescription and apdg-luo-sbuubtz medicines, vitamins, and herbal products. Tell your [...] to ensure that the information provided by [employer]. ('[employer]') is accurate, up-to-date, and complete, but no guarantee is made to that effect. Drug information contained herein may be time sensitive. [employer] information has been compiled for use by healthcare practitioners and consumers in the [place] and therefore [employer] does not warrant that uses outside of the [place] are appropriate, unless specifically indicated otherwise. [employer] drug information does not endorse drugs, diagnose patients or recommend therapy. [employer] drug information isan informational resource designed to [...] effective or appropriate for any given patient. [employer] does not assume any responsibility for any aspect of healthcare administered with the aid of information [employer] provides. The information contained herein is not intended to cover all possible uses, directions, precautions, warnings, drug interactions, allergic reactions, or adverse effects. If you have questions about the drugs you are taking, check with your doctor, nurse or pharmacist. Copyright 3454-6806 [employer]. Version: 5.01. Revision Date: 03/11/2021. Education Materials [...] can, walk or bike instead of driving. Lincoln leaves, garden, or do household repairs. Be [...] healthcare provider before stopping or changing them. 3142-4548 [employer]. [address] [place] [address]. All rights reserved. This information is not intended as a substitute for professional medical care. Always follow yourhealthcare professional's instructions. Additional Information VACCINATE! IT SAVES LIVES! Members of the community who have not yet received the COVID-19 vaccine and would like to receive it can visit one of [facility] vaccine clinics. There are many vaccine clinic locations within the [facility]. For locations and available times, please visit [email or web address]. It is important to note that some COVID mobile vaccine clinics are held outdoors and may be canceled in rainy orstormy conditions. To learn more about pediatric vaccinations (ages 5-11), we invite you to visit the [facility] webpage. https://www.[facility].org/pages/2941-Wwrxw-Ysoguxiqslu-Xksphcoydh-Ngqpu-Jir stions.htmlTo learn more about the COVID-19 vaccine, we invite you to visit the [employer] website for a list of frequently asked questions. [email or web address]/[email or web address]-Vgjlzquh/alzsd-Nzjzarh-Klxutsacww _Asked-Questions.pdf [facility] [employer] Patient Portal Access Instructions: Stay connected with your healthcare team and access your personal medical information anytime with the [facility] Patient Portal. If you would like a full copy of your medical records please contact the [facility] Medical Records Department Monday through Monday between 8a.m. and 4:30p.m. Please follow the directions below to access the portal: 1.Access the email account you provided upon registration to the [facility].2.Look for an invitation email from [facility].3.Open the email and access the invitation link: [facility] [place] [facility].Fill in the required cifuentes to create your account. Sign into [email or web address] with your username and password that you [...] you will allow to register on the [place] [employer] Patient Portal for access to your information. You can also access the [employer] Patient Portal on the [employer]ra. Simply click on Health Records under [employer] and then click on the [employer] logo. [...] Call your local pharmacy or go to http://bit.ClearFlow/7O5If1g to find one close to you.3.Make use of household items: Use cat litter or old coffee grounds to dispose medications if other options arenot available. Mix your drugs with these household products, seal them in an airtight container andthrow it into the garbage. Call [facility]: [phone] to be sure your drugs can be [...] aware that I should contact my doctor. Patient/National Recruiter Signature: Date/Time: Relationship to Patient: Witness Name/Signature: Date/Time: [facility]01-31-2023 Note ORIGINAL EXAMINATION: THREE XRAY VIEWS [...] Sign Date: 03/15/2022 12:40:48 PM [facility] Appointment Date:03/21/2022 09:00:00 AM Scheduled Provider:GOLD FU Location:[facility] Appointment Type:PC OV ED Follow Up Diagnostic Tests Pending * Urine Culture 03/15/22 [facility] Evaluation + Plan note Future Appointments Appointment Date:06/20/2022 09:00:00 AM Scheduled Provider:GOLD FU APRN-MARIA C Location:[facility] Appointment Type:PC OV [facility] Evaluation + Plan note Future Appointments Appointment Date:02/28/2023 08:00:00 AM Scheduled Provider:GOLD FU APRN-MARIA C Location:[facility] Appointment Type:PC Wellness Medicare [facility] Hospital course Narrative No data available for this section [facility] Hospital Discharge instructions No data available for this section [facility] Progress note No data available for this section [facility] Summary Purpose Family History No Family History Records Found No data available for this section Advance Directives No Advanced Directives Records Found Additional Source Comments Care Team (unrecognized sect ion and content) Care Team Personnel Name: PHYSICIAN, NONE Position: Physician Member Role: Primary Care Physician Name: WHIT WEIR DO Position: Resident Member Role: Resident Address: Address: [address] [facility] [place] [address]- Name: BLAYNE Pagan Position: ED RN Member Role: ED RN Name: ANNEMARIE THORPE MD Position: ED Physician Member Role: ED Physician Address: Address: [facility] [address] [place] [address]- Patient Care team informatio n (unrecognized section and content) Care Team Personnel Name: PHYSICIAN, NONE Position: Physician Member Role: Primary Care Physician Care Team Related Persons Name: MARCELA STRICKLAND Care Team Personnel Name: GOLD FU APRN-INTERNATIONAL ACCOUNTANT Position: P4 Advanced Nurse Private Duty Member Role: Primary Care Physician Address: Address: [address] [place], [place] [id number] Care Team Related Persons Name: MARCELA STRICKLAND Care Team Personnel Name: GOLD FU WELFARE INVESTIGATOR-INTERNATIONAL ACCOUNTANT Position: P4 Advanced Nurse Private Duty Member Role: Primary Care Physician Address: Address: [address] [place] [address]- Care Team Related Persons Name: MARCELA STRICKLAND [...] BE BASED ON THE PRIMARY CLINICAL RECORDS. [facility]. provides no warranty or guarantee of the accuracy or completeness of information in this document.
== END | disposition home or self-care (01) ==
LOC: LABSPEC 14:13
PROVIDERS: PCP Nurse Practitioner Adult Health
DX: T81.49XA Infection following a procedure, other surgical site, initial encounter (principal); Z79.2 Long term (current) use of antibiotics; X58.XXXA Exposure to other specified factors, initial encounter
CPT/HCPCS: 82565; 84460; 85025

== ENCOUNTER → 2023-04-04 | Outpatient (CLI) | payer MEDICARE, SELFPAY ==
[2023-04-04 12:31] LABS: Absolute Lymphocyte Count 1.69 X10^3/uL (0.83-4.51); Absolute Neutrophil Count 4.9 X10^3/uL (2.0-7.7); Basophil# 0.06 X10^3/uL; Basophil% 0.8 % (0-1); Eosinophil# 0.14 X10^3/uL; Eosinophils% 1.9 % (0-5); Hematocrit 34.7 % (37-47); Hemoglobin 10.5 g/dL (12.0-15.0); Lymphocyte # 1.69 X10^3/ul (0.83-4.51); Lymphocyte % 22.7 % (19-41); Mean Corp Hgb Conc 30.3 g/dL (32-36); Mean Corpuscular Hgb 27.6 pg (27.0-32.0); Mean Corpuscular Volume 91.3 fL (81-99); Mean Platelet Vol. 10.2 fl (6.2-12.0); Monocyte# 0.58 X10^3/uL; Monocyte% 7.8 % (0-10); NRBC Flagged by Analyzer 0 % (0-5); Neutrophil # 4.93 X10^3/uL (2.7-7.7); Neutrophil % 66.3 % (47-70); Platelet Count 301 K/mm3 (150-450); RBC Distribution Width CV 13.4 % (11.6-14.6); RBC Distribution Width SD 45.1 fl (35.1-43.9); White Blood Count 7.4 K/mm3 (4.4-11.0)
[2023-04-04 12:39] LABS: Alanine Aminotransfer ALT/SGPT 14 U/L (13-56); Creatinine, Serum 0.85 mg/dL (0.55-1.02); EST Glomerular Filtration Rate 70 mL/min (>60); Est Glom Filt Rate - Afr Amer 85 mL/min (>60)
== END | disposition home or self-care (01) ==
PROVIDERS: PCP Nurse Practitioner Adult Health
DX: T81.49XA Infection following a procedure, other surgical site, initial encounter (principal); Z79.2 Long term (current) use of antibiotics; X58.XXXA Exposure to other specified factors, initial encounter
CPT/HCPCS: 82565; 84460; 85025

== ENCOUNTER → 2023-04-10 | Outpatient (CLI) | payer MEDICARE, SELFPAY ==
[2023-04-10 13:40] LABS: Absolute Lymphocyte Count 1.72 X10^3/uL (0.83-4.51); Absolute Neutrophil Count 5.8 X10^3/uL (2.0-7.7); Basophil# 0.04 X10^3/uL; Basophil% 0.5 % (0-1); Eosinophil# 0.13 X10^3/uL; Eosinophils% 1.6 % (0-5); Hematocrit 33.9 % (37-47); Hemoglobin 10.4 g/dL (12.0-15.0); Lymphocyte # 1.72 X10^3/ul (0.83-4.51); Lymphocyte % 20.6 % (19-41); Mean Corp Hgb Conc 30.7 g/dL (32-36); Mean Corpuscular Hgb 28.1 pg (27.0-32.0); Mean Corpuscular Volume 91.6 fL (81-99); Mean Platelet Vol. 9.9 fl (6.2-12.0); Monocyte# 0.58 X10^3/uL; NRBC Flagged by Analyzer 0 % (0-5); Neutrophil # 5.84 X10^3/uL (2.7-7.7); Neutrophil % 69.9 % (47-70); Platelet Count 329 K/mm3 (150-450); RBC Distribution Width CV 13.4 % (11.6-14.6); RBC Distribution Width SD 45.1 fl (35.1-43.9); White Blood Count 8.3 K/mm3 (4.4-11.0)
[2023-04-10 13:50] LABS: Alanine Aminotransfer ALT/SGPT 18 U/L (13-56); Creatinine, Serum 0.95 mg/dL (0.55-1.02); EST Glomerular Filtration Rate 62 mL/min (>60); Est Glom Filt Rate - Afr Amer 75 mL/min (>60)
--- OUTSIDE RECORDS SUMMARY | 2023-04-10 21:35 | XMS RPT_ITS | CCD ---
Author Name Unknown Address [address] [place] [address] Organization [facility] Care Team Providers Care Music The[employer] Name Role Phone PHYSICIAN, NONE Primary Care Physician Unavailab le MAST REHAB TECHNICIAN-FINANCIAL SUPERVISOR, GOLD Primary Care Physician ([phone] MAST REHAB TECHNICIAN-FINANCIAL SUPERVISOR, GOLD Attending Unavailabl e MAST REHAB TECHNICIAN-FINANCIAL SUPERVISOR, GOLD Primary Care Unavailabl e MAST REHAB TECHNICIAN-FINANCIAL SUPERVISOR, GOLD Attending Unavailabl e PHYSICIAN, NONE Primary Care Unavailable ANNEMARIE THORPE MD Attending Unavailable PHYSICIAN, NONE Primary Care Unavailable MAST REHAB TECHNICIAN-FINANCIAL SUPERVISOR, GOLD Attending Unavailabl e PHYSICIAN, NONE Primary Care Unavailable GAGE OCAMPO, DR WETZEL Attending Unavailabl e MAST REHAB TECHNICIAN-FINANCIAL SUPERVISOR, GOLD Primary Care Unavailabl e Medications Current [...] constipation, # 60 cap(s), 6 Refill(s), Pharmacy: [id number], Hypokalemia Constipation, 168, cm, 03/21/22 8:56:00 EST, [...] Non-Invasive [address] DAMARI ALMONTE MD [facility] 05-27-2022 11:10-0400 Heart rate 86 /min DR DAMARI ALMONTE MD [facility] 05-27-2022 11:10-0400 Respiratory rate 14 /min DR DAMARI ALMONTE MD [facility] 05-27-2022 11:10-0400 Systolic Blood Pressure Non-Invasive [address] DAMARI ALMONTE MD [facility] 05-27-2022 11:05-0400 Diastolic Blood Pressure Non-Invasive [address] DAMARI ALMONTE MD [facility] 05-27-2022 11:05-0400 Heart rate 83 /min DR DAMARI ALMONTE MD [facility] 05-27-2022 11:05-0400 Respiratory rate 24 /min DR DAMARI ALMONTE MD [facility] 05-27-2022 11:05-0400 Systolic Blood Pressure Non-Invasive [address] DAMARI ALMONTE MD [facility] 05-27-2022 11:00-0400 Diastolic Blood Pressure Non-Invasive [address] DAMARI ALMONTE MD [facility] 05-27-2022 11:00-0400 Heart rate 82 /min DR DAMARI ALMONTE MD [facility] 05-27-2022 11:00-0400 Respiratory rate 22 /min DR DAMARI ALMONTE MD [facility] 05-27-2022 10:50-0400 Respiratory Rate - Anes 18 br/min DR DAMARI ALMONTE MD [facility] 05-27-2022 10:45-0400 Respiratory Rate - Anes 22 br/min DR DAMARI ALMONTE MD [facility] 05-27-2022 10:40-0400 Respiratory Rate - Anes 0 br/min DR DAMARI ALMONTE MD [facility] 05-27-2022 10:05-[address] DAMARI ALMONTE MD [facility] 05-27-2022 10:05-[address] DAMARI ALMONTE MD [facility] 05-27-2022 10:05-0400 Body height [address] DAMARI ALMONTE MD [facility] 05-27-2022 10:05-0400 Body temperature 97.7 [degF] DR DAMARI ALMONTE MD [facility] 05-27-2022 10:05-0400 Body weight 90.[address] DAMARI ALMONTE MD [facility] 05-27-2022 10:05-0400 Body weight 32.21 kg/m2 DR DAMARI ALMONTE MD [facility] 05-27-2022 10:05-0400 Heart rate 101 /min DR DAMARI ALMONTE MD [facility] 03-15-2022 13:38-0500 Diastolic Blood Pressure Non-Invasive 81 1 ANNEMARIE THORPE MD [facility] 03-15-2022 13:38-0500 Heart rate 79 /min ANNEMARIE THORPE MD [facility] 03-15-2022 13:38-0500 Respiratory rate 16 /min ANNEMARIE THORPE MD [facility] 03-15-2022 13:38-0500 Systolic Blood Pressure Non-Invasive 187 1 ANNEMARIE THORPE MD [facility] 03-15-2022 13:08-0500 Diastolic Blood Pressure Non-Invasive 74 1 ANNEMARIE THORPE MD [facility] 03-15-2022 13:08-0500 Heart rate 84 /min ANNEMARIE THORPE MD [facility] 03-15-2022 13:08-0500 Respiratory rate 16 /min ANNEMARIE THORPE MD [facility] 03-15-2022 13:08-0500 Systolic Blood Pressure Non-Invasive 171 1 ANNEMARIE THORPE MD [facility] 03-15-2022 10:59-0500 Body temperature 97.7 [degF] ANNEMARIE THORPE MD [facility] 03-15-2022 10:59-0500 Diastolic Blood Pressure Non-Invasive 91 1 ANNEMARIE THORPE MD [facility] 03-15-2022 10:59-0500 Heart rate 93 /min ANNEMARIE THORPE MD [facility] 03-15-2022 10:59-0500 Respiratory rate 16 /min ANNEMARIE THORPE MD [facility] 03-15-2022 10:59-0500 Systolic Blood Pressure Non-Invasive 202 1 ANNEMARIE THORPE MD [facility] Encounters Encounter Date Encounter Type Care Provider Facility Start: 10-10-2022 End: 10-11-2022 ambulatory GOLD MAST REHAB TECHNICIAN-FINANCIAL SUPERVISOR Facility:B Start: 10-10-2022 End: 10-10-2022 Patient encounter procedure GOLD MAST REHAB TECHNICIAN-FINANCIAL SUPERVISOR [facility] Start: 05-27-2022 End: 05-27-[address] DAMARI ALMONTE MD Facility:B Start: 05-27-2022 End: 05-27-[address] DAMARI ALMONTE MD [facility] Start: 05-23-2022 End: 05-24-2022 ambulatory GOLD MAST REHAB TECHNICIAN-FINANCIAL SUPERVISOR Facility:B Start: 05-23-2022 End: 05-23-2022 Patient encounter procedure GOLD MAST REHAB TECHNICIAN-FINANCIAL SUPERVISOR [facility] Start: 03-24-2022 ambulatory GOLD MAST REHAB TECHNICIAN-FINANCIAL SUPERVISOR Fa cility:A Start: 03-15-2022 End: 03-15-2022 Emergency department patient visit ANNEMARIE THORPE MD Facility:B Start: 03-15-2022 End: 03-15-2022 Emergency department patient visit ANNEMARIE THORPE MD [facility] Procedures Date Procedure Procedure Detail Performing Clinician Hysterectomy ANNEMARIE Santana Payers Date Payer Category Payer Unknown [id number] 1950 Unknown [id number] [id number] 1950 Unknown [id number] [id number] [id number] 1950 Unknown [id number] [id number] [id number] 1950 Unknown [id number] [id number] [id number] 1950 Unknown [id number] 2.16.8 [id number] Social History Date Type Detail Facility Tobacco smoking status No Smokin g Status Entered [facility] Sex Assigned At Female [facility] Start: 03-21-2022 Tobacco smoking status Never s moked tobacco (finding) [facility] Functional Status Date Assessment Result Facility 05-27-2022 Functional Status Awake [facility] 05-27-2022 Functional Status Maintained [facility] 03-15-2022 Functional Status Independent [facility] 03-15-2022 Functional Status Standard Safety ID band on [facility] Mental Status Date Assessment Result Facility 05-27-2022 Mental Status Oriented x [address] [facility] 05-27-[address] [facility] 03-15-2022 Mental Status Orientation Oriented x 4 [facility] 03-15-[address] [facility] Clinical Notes 03-15-2022 to 05-27-2022 Note Date & Type Note Facility ALEX ADMISSION HISTORY AN D PHYSICIAL CHIEF COMPLAINT: HISTORY OF PRESENT ILLNESS: REVIEW OF SYSTEMS: ACTIVE PROBLEMS: (12) Abdominal pain (69909207) Bloating (882284521) Constipation (82326439) Encounter for examination following treatment at hospital (864631510) HTN (hypertension) (6837570650) Numbness and tingling of both feet (325741668) Numbness in both hands (835846556) Screening for colon cancer (776358903) Spinal stenosis in cervical region (529558728) Spinal stenosis of lumbar region (26982882) Unsteady gait (04069797) Weakness (41244053) MEDICATIONS: Active Inpt Meds: None Active PRN Meds: None One Time Meds: None Active IV Meds: Lactated Ringers Infusion 1,000 mL (LR 1,000 mL) Start: 05/27/22 10:05:00 EDT, Rate: 50 mL/hr, 05/27/22 10:05:00 EDT ALLERGIES: (1) NKA FAMILY HISTORY: SOCIAL HISTORY: PHYSICAL EXAM: VITALS: AasfvuRwafANNseoyWRWxA5QVY4TtzmYv(kg) 05/27 10:0536.5--[id number]/14 90.9 24 Hr Tmax: 36.5 at 05/27 [...] Appointment Date:06/20/2022 09:00:00 AM Scheduled Provider:GOLD FU Location[place] [place] Appointment Type:[facility] 04-14-2023 Hospital Discharge instructions Patient Education 05/27/2022 10:56:57 Nausea and Vomiting, Adult, Jofl-ol-Tmgy Nausea and Vomiting, Adult Nausea is feeling [...] fruit juice). ?Low-calorie sports drinks. Eat bland, hdpg-md-maltzm foods in small amounts as you are able, such as: ?Bananas. ?Applesauce. ?Rice. ?Low-fat (lean) meats. ?[place]. ?Crackers. Avoid drinking fluids that have a lot of sugar or caffeine in them. This includes energy drinks, sports drinks, and soda. Avoid alcohol. Avoid spicy or fatty foods. General instructions Take ckhe-wdu-hanloob and prescription medicines only as told by your doctor. Drink enough fluid to keep your pee (urine) pale yellow. Wash your hands often with soap and water. If you cannot use soap and water, use hand patient care associate. Make sure that all people in your [...] too much water in your body. Take xhnw-zbr-jdwkapt and prescription medicines only as told by [...] 07/18/2008 Document Revised: 05/24/2019 Document Reviewed: 07/10/2018 [employer] Patient Education 2020 [employer]. 05/27/2022 10:56:56 Monitored Anesthesia Care, Care After [...] before eating solid foods. General instructions Take afcx-vcb-otundsd and prescription medicines only as told by [...] 05/22/2016 Document Revised: 04/30/2018 Document Reviewed: 05/22/2016 [employer] Patient Education 2020 [employer]. 05/27/2022 10:56:53 Colon Polyps Colon Polyps Polyps [...] 10/26/2004 Document Revised: 05/17/2018 Document Reviewed: 05/17/2018 [employer] Patient Education [employer] Follow Up Care 05/16/2022 14:38:04 With:DAMARI ALMONTE Address: [address] [facility] [address] [place] [address]- [phone] Business (1) When: Unknown [facility] 04-14-2023 Note Discharge Instructions Thank you for allowing [facility] to assist you with your healthcare needs. The following is importantdischarge information regarding your hospital visit. Your Care Team GOLD FU DR Your Diagnosis COLON POLYPS What to do next Instructions From Your Doctor NO DRIVING FOR 24 HOURS Scheduled Follow-Up Appointments Appointment Type When With Where Contact Abdoul BEAR 06/20/2022 09:00 AM EDT GOLD FU [facility] [address] [place] [address] Follow Up Appointments Follow Up with DAMARI ALMONTE When Where: [address] [facility] [address] [place] [address] [phone] Business (1) Allergies NKA Medications Please ask [...] juice). ? Low-calorie sports drinks. Eat bland, qsrf-ld-ukgivk foods in small amounts as you are able, such as: ? Bananas. ? Applesauce. ? Rice. ? Low-fat (lean) meats. ? [place]. ? Crackers. Avoid drinking fluids that have a lot of sugar or caffeine in them. This includes energy drinks, sports drinks, and soda. Avoid alcohol. Avoid spicy or fatty foods. General instructions Take xefj-eyd-ytafmkf and prescription medicines only as told by your doctor. Drink enough fluid to keep your pee (urine) pale yellow. Wash your hands often with soap and water. If you cannot use soap and water, use hand patient care associate. Make sure that all people in your [...] too much water in your body. Take khzh-dap-kjhlspn and prescription medicines only as told by [...] 07/18/2008 Document Revised: 05/24/2019 Document Reviewed: 07/10/2018 [employer] Patient Education 2020 [employer]. Monitored Anesthesia Care, Care After These instructions [...] before eating solid foods. General instructions Take vbie-qex-dcbizlc and prescription medicines only as told by [...] 05/22/2016 Document Revised: 04/30/2018 Document Reviewed: 05/22/2016 [employer] Patient Education 2020 [employer]. Colon Polyps Polyps are tissue growths inside [...] Document Reviewed: 05/17/2018 Elsevier Patient Education 2020 [employer] Additional Information VACCINATE! IT SAVES LIVES! Members of the community who have not yet received the COVID-19 vaccine and would like to receive it can visit one of [facility] vaccine clinics. There are many vaccine clinic locations within the [facility]. For locations and available times, please visit [email or web address] It is important to note that some COVID mobile vaccine clinics are held outdoors and may be canceled in rainy or stormy conditions. To learn more about pediatric vaccinations (ages 5-11), we invite you to visit the [employer] webpage. https://www.R[employer]s.org/pages/9960-Wnzvr-Hanztsveegc-Ydjspdnfwk-Wtbif-Dvy stions.htmlTo learn more about the COVID-19 vaccine, we invite you to visit the CDC website for a list of frequently asked questions. https://www.cdc.gov/coronavirus/2019-ncov/vaccines/faq.html [employer] Patient Portal Access Instructions: Stay connected with your healthcare team and access your personal medical information anytime with the [employer] Patient Portal.If you would like a full copy of your medical records, please contact the [facility] Medical Records Department, Monday through Monday between 8a.m. and 4:30p.m. Please follow the directions below to access the portal: 1.Access the email account you provided upon registration to the [facility].2.Look for an invitation email from [facility].3.Open the email and access the invitation link: Accept Invitation to [employer].Fill in the required cifuentes to create your account. Sign into [email or web address] with your username and password that you [...] you will allow to register on the [employer] Patient Portal for access to your information. You can also access the [employer] Patient Portal on the [facility] [employer] [facility]. Simply click on Health Records under [employer] and then click on the [employer] logo. HOW TO SAFELY DISPOSE OF PRESCRIPTION [...] Call your local pharmacy or go to http://I Read Books.Venuemob/7C9Uk9p to find one close to you.3.Make use of household items: Use cat litter or old coffee grounds to dispose medications if other options arenot available. Mix your drugs with these household products, seal them in an airtight container andthrow it into the garbage. Call [facility]: [phone] to be sure your drugs can be [...] Patient Education Materials Nausea and Vomiting, Adult, Lcxw-ir-Czkv Monitored Anesthesia Care, Care After Colon Polyps Medication Leaflets My discharge plan and instructions have been reviewed and explained to me and I,BIBIANA STRICKLAND understand my current condition and have read and understand these discharge instructions. I have received a written copy of the plan/instructions. If I have questions, I am aware that I should contact my doctor. Patient/Property Investor Signature: Date/Time: Relationship to Patient: Witness Name/Signature: Date/Time: [facility]04-14-2023 Anesthesiology Consult note Patient: BIBIANA STRIKCLAND Age: 71 years Sex: Female : 1950 [...] Problem list: Medical Bloating / SNOMED CT 479077496 / Confirmed Abdominal pain / SNOMED CT 87547368 / Confirmed Unsteady gait / SNOMED CT 69438044 / Confirmed Weakness / SNOMED CT 78869038 / Confirmed Constipation / SNOMED CT 63389317 / Confirmed HTN (hypertension) / SNOMED CT 8981445002 / Confirmed Numbness in both hands / SNOMED CT 117367764 / Confirmed Numbness and tingling of both feet / SNOMED CT 109030066 / Confirmed Encounter for examination following treatment at hospital / SNOMED CT 042438439 / Confirmed Screening for colon cancer / SNOMED CT 325492973 / Confirmed Spinal stenosis in cervical region / SNOMED CT 512512275 / Confirmed Spinal stenosis of lumbar region / SNOMED CT 49914666 / Confirmed, Active Problems (12) Abdominal pain [...] Rheumatic fever Father () Procedure history: Hysterectomy (576495295). Social History Social & Psychosocial Habits Alcohol [...] Weight Lbs 200 lb Weight Method Stated [place] Body Weight 59.63 kg BSA Admission 2 [...] Surgeon SN - CAt - Role Performed ENVIRONMENTAL CONTROL ADMINISTRATOR SN - CAt - Role Performed Diagnostic Radiologist 1 SN - CAt - Role Performed Financial Supervisor 05/27/2022 10:24 EDT Systolic Blood Pressure Non-Invasive 186 mmHg HI Diastolic Blood Pressure Non-Invasive 87 mmHg 05/27/2022 10:23 EDT Lactated Ringers Injection Begin Bag 1,000 mL mL 05/27/2022 10:05 EDT Designated Person #1 We May Share ARSENIO MEDRANO [phone] Designated Person #1 Relationship Spouse Height 168 cm Height in inches 66.1 inch(es) Admission Weight 90.9 kg Weight Lbs 200 lb Weight Method Stated [place] Body Weight 59.63 kg BSA Admission 2 [...] difficulties Status Skin Temperature Warm Skin Description [place] Skin Integrity Intact Wrist Right 05/27/2022 22 [...] evident Teaching Method Explanation Preferred Written Language [place] Preferred Spoken Language [place] Information Given by Patient Patient's Current [...] EDT Mora LEYVA . Assessment and Plan [place] Society of Anesthesiologists (ASA) physical status classification: Class II. Anesthetic Preoperative Plan Anesthetic technique: MAC. Postoperative pain management: Per surgeon. Informed consent: signed by patient. Digitally Signed by WALTER LOPES on 05/27/2022 10:35 AM [facility]04-14-2023 Note ALEX ADMISSION HISTORY AND PHYSICIAL CHIEF COMPLAINT: HISTORY OF PRESENT ILLNESS: REVIEW OF SYSTEMS: ACTIVE PROBLEMS: (12) Abdominal pain (63909190) Bloating (196053299) Constipation (22454513) Encounter for examination following treatment at hospital (352350378) HTN (hypertension) (6295103595) Numbness and tingling of both feet (026384591) Numbness in both hands (380384639) Screening for colon cancer (076887970) Spinal stenosis in cervical region (386684653) Spinal stenosis of lumbar region (72561761) Unsteady gait (44924178) Weakness (47718022) MEDICATIONS: Active Inpt Meds: None Active PRN Meds: None One Time Meds: None Active IV Meds: Lactated Ringers Infusion 1,000 mL (LR 1,000 mL) Start: 05/27/22 10:05:00 EDT, Rate: 50 mL/hr, 05/27/22 10:05:00 EDT ALLERGIES: (1) NKA FAMILY HISTORY: SOCIAL HISTORY: PHYSICAL EXAM: VITALS: BkeeghCeuoPHXrpdxDDJpW9UFL7UcrpBp(kg) 05/27 10:0536.5--2774144PV20/14 90.9 24 Hr Tmax: 36.5 at 05/27 [...] DAMARI ALMONTE MD on 05/27/2022 10:34 AM [facility]02-02-2023 Note. MICRO - Microbiology PROCEDURE: Urine [...] Locations *1: This test was performed at: [facility], [address] [place] [address], [phone]- , [facility]03-15-2022 Hospital Discharge instructions Patient Education 03/15/2022 12:59:20 [...] can, walk or bike instead of driving. [place] leaves, garden, or do household repairs. Be [...] healthcare provider before stopping or changing them. 9345-7642 [employer]. [address] [place] [address]. All rights reserved. This information is not intended as a substitute for professional medical care. Always follow yourhealthcare professional's instructions. Follow Up Care 03/15/2022 10:58:20 With:DAMARI ALMONTE MD Address: [address] [address] [phone] When:5 to 7 days With:Follow up with primary care provider Address:Unknown When:2-4 days With:Call Physician Referral Address:Unknown When:2-4 days [facility] 01-31-2023 Note Discharge Instructions Thank you for allowing [facility] to assist you with your healthcare needs. [...] Where: [address] [place] [address]- [phone] Follow Up with Follow up with primary [...] have an allergic reaction if you are -[place]. Call your doctor at once if you [...] may report side effects to FDA at 4-074-QRS-0474. What other drugs will affect lisinopril? Tell [...] drugs may affect lisinopril, including prescription and qndk-xnz-lmfdobj medicines, vitamins, and herbal products. Not all [...] to ensure that the information provided by [employer]. ('[employer]') is accurate, up-to-date, and complete, but no guarantee is made to that effect. Drug information contained herein may be time sensitive. [employer] information has been compiled for use by healthcare practitioners and consumers in the [place] and therefore [employer] does not warrant that uses outside of the [place] are appropriate, unless specifically indicated otherwise. [employer] drug information does not endorse drugs, diagnose patients or recommend therapy. [employer] drug information isan informational resource designed to [...] effective or appropriate for any given patient. [employer] does not assume any responsibility for any aspect of healthcare administered with the aid of information [employer] provides. The information contained herein is not intended to cover all possible uses, directions, precautions, warnings, drug interactions, allergic reactions, or adverse effects. If you have questions about the drugs you are taking, check with your doctor, nurse or pharmacist. Copyright 8367-3451 [employer]. Version: 15.03. Revision Date: 12/04/2018. docusate (oral/rectal) [...] may report side effects to FDA at 7-292-YBO-2742. What other drugs will affect docusate? Other drugs may affect docusate, including prescription and ptkj-cup-pgoadyn medicines, vitamins, and herbal products. Tell your [...] to ensure that the information provided by [employer]. ('[employer]') is accurate, up-to-date, and complete, but no guarantee is made to that effect. Drug information contained herein may be time sensitive. [employer] information has been compiled for use by healthcare practitioners and consumers in the [place] and therefore [employer] does not warrant that uses outside of the [place] are appropriate, unless specifically indicated otherwise. [employer] drug information does not endorse drugs, diagnose patients or recommend therapy. [employer] drug information isan informational resource designed to [...] effective or appropriate for any given patient. [employer] does not assume any responsibility for any aspect of healthcare administered with the aid of information [employer] provides. The information contained herein is not intended to cover all possible uses, directions, precautions, warnings, drug interactions, allergic reactions, or adverse effects. If you have questions about the drugs you are taking, check with your doctor, nurse or pharmacist. Copyright 5590-2407 [employer]. Version: 5.01. Revision Date: 03/11/2021. Education Materials [...] can, walk or bike instead of driving. [place] leaves, garden, or do household repairs. Be [...] healthcare provider before stopping or changing them. 8824-4538 [employer]. [address] [place] [address]. All rights reserved. This information is not intended as a substitute for professional medical care. Always follow yourhealthcare professional's instructions. Additional Information VACCINATE! IT SAVES LIVES! Members of the community who have not yet received the COVID-19 vaccine and would like to receive it can visit one of [facility] vaccine clinics. There are many vaccine clinic locations within the [facility]. For locations and available times, please visit [email or web address]. It is important to note that some COVID mobile vaccine clinics are held outdoors and may be canceled in rainy orstormy conditions. To learn more about pediatric vaccinations (ages 5-11), we invite you to visit the [facility] webpage. https://[email or web address]/pages/2750-Uitkc-Hydofpbmqyi-Usyidknihp-Wpygs-Omq stions.htmlTo learn more about the COVID-19 vaccine, we invite you to visit the [employer] website for a list of frequently asked questions. [email or web address] [facility] Patient Portal Access Instructions: Stay connected with your healthcare team and access your personal medical information anytime with the [facility] Patient Portal. If you would like a full copy of your medical records please contact the [facility] Medical Records Department Monday through Monday between 8a.m. and 4:30p.m. Please follow the directions below to access the portal: 1.Access the email account you provided upon registration to the [facility].2.Look for an invitation email from [facility].3.Open the email and access the invitation link: Accept Invitation to [facility]4.Fill in the required cifuentes to create your account. Sign into [email or web address] with your username and password that you [...] you will allow to register on the [facility] Patient Portal for access to your information. You can also access the [facility] Patient Portal on the [employer] [place]. Simply click on Health Records under [employer] [employer] and then click on the [employer] logo. [...] Call your local pharmacy or go to http://bit.Venuemob/2U4Iv9m to find one close to you.3.Make use of household items: Use cat litter or old coffee grounds to dispose medications if other options arenot available. Mix your drugs with these household products, seal them in an airtight container andthrow it into the garbage. Call [facility]: [phone] to be sure your drugs can be [...] aware that I should contact my doctor. Patient/Property Investor Signature: Date/Time: Relationship to Patient: Witness Name/Signature: Date/Time: [facility]01-31-2023 Note ORIGINAL EXAMINATION: THREE XRAY VIEWS [...] Sign Date: 03/15/2022 12:40:48 PM Ordering Provider: [facility]01-31-2023 Note ORIGINAL EXAMINATION: THREE XRAY VIEWS OF [...] Sign Date: 03/15/2022 12:40:48 PM [facility] Future Appointments Appointment Date:03/21/2022 09:00:00 AM Scheduled Provider:GOLD FU Location[place] [place] Appointment Type:PC OV ED Follow Up Diagnostic Tests Pending * Urine Culture 03/15/22 [facility] Evaluation + Plan note Future Appointments Appointment Date:06/20/2022 09:00:00 AM Scheduled Provider:GOLD FU APRN-MARIA C Location:[facility] Appointment Type:PC OV [facility] Evaluation + Plan note Future Appointments Appointment Date:02/28/2023 08:00:00 AM Scheduled Provider:GOLD FU APRN-MARIA C Location:[facility] [place] Appointment Type:PC Wellness Medicare [facility] Hospital course Narrative No data available for this section [facility] Hospital Discharge instructions No data available for this section [facility] Progress note No data available for this section [facility] Summary Purpose Family History No Family History Records Found No data available for this section Advance Directives No Advanced Directives Records Found Additional Source Comments Care Team (unrecognized sect ion and content) Care Team Personnel Name: PHYSICIAN, NONE Position: Physician Member Role: Primary Care Physician Name: WHIT WEIR DO Position: Resident Member Role: Resident Address: Address: [address] [facility] [place] [address]- Name: BLAYNE Pagan Position: ED RN Member Role: ED RN Name: ANNEMARIE THORPE MD Position: ED Physician Member Role: ED Physician Address: Address: [facility] [address] [place] [address]- Patient Care team informatio n (unrecognized section and content) Care Team Personnel Name: PHYSICIAN, NONE Position: Physician Member Role: Primary Care Physician Care Team Related Persons Name: MARCELA STRICKLAND Care Team Personnel Name: GOLD FU APRN-FINANCIAL SUPERVISOR Position: P4 Advanced Mission Planner Member Role: Primary Care Physician Address: Address: [address] [place], [place] [address] Care Team Related Persons Name: MARCELA STRICKLAND Care Team Personnel Name: GOLD FU REHAB TECHNICIAN-FINANCIAL SUPERVISOR Position: P4 Advanced Mission Planner Member Role: Primary Care Physician Address: Address: [address] [place] [address]- Care Team Related Persons Name: MARCELA STRICKLAND [...] BE BASED ON THE PRIMARY CLINICAL RECORDS. [facility] [employer] [facility]. provides no warranty or guarantee of the accuracy or completeness of information in this document.
== END | disposition home or self-care (01) ==
PROVIDERS: PCP Nurse Practitioner Adult Health
DX: T81.49XA Infection following a procedure, other surgical site, initial encounter (principal); Z79.2 Long term (current) use of antibiotics
CPT/HCPCS: 82565; 84460; 85025